=== PATIENT | female | born 1930 | race Caucasian/White ===

== ENCOUNTER 2016-10-04 13:26 | Emergency (ER) | payer MEDICARE, BC ==
[~2016-10-04 13:26] MED LIST: ASPI81TA5 PO; BUME1TAB PO; CART120C PO; DIGO0.12 PO; HUMALOG SQ; LEVEMIR SQ; LEVO88TA2 PO; LOSA25TA PO; METF1000 PO; METO100T PO; METO2.5T PO; POTA-245 PO; PRAM0.25 PO; PRED1SUS6 EACH EYE; SPIR25TA PO; TRAM50TA PO
[2016-10-04 13:35] VITALS: BP 134/65; PULSE 79; RESP 20; TEMP 98; O2SAT 98
[2016-10-04] MEDS ORDERED: oxyCODONE/ACETAMINOPHEN 5 MG/325 MG TAB PO ONE (14:15)
[2016-10-04] MEDS ORDERED: KETOROLAC TROMETHAMINE 60 MG/2 ML (IM) VIAL IM ONE (14:15)
[2016-10-04] MEDS ORDERED: HYDR-3533 PO (14:23)
--- NOTE | 2016-10-04 14:23 | PD ---
HPI Chief Complaint: Pain: Acute or Chronic Time Seen by Provider: 14:00 Travel History International Travel<30 days: No Contact w/Intl Traveler<30days: No Traveled to known affect area: No History of Present Illness HPI 85-year-old female presents to the emergency room for evaluation of right lateral hip pain for the past several weeks but worsened last night. No trauma or injury. Pain is worsened with any range of motion of the right hip or walking. She has constant dull ache at rest and sharp severe pain with any range of motion. She is prescribed tramadol for chronic arthritic pain and states that only helps a small amount. She also has taken Tylenol without significant relief. She denies right lower extremity paresthesias. She denies fever, chills, nausea, and vomiting. PFSH Past Medical History Heart Rhythm Problems: Yes Congestive Heart Failure: Yes Diabetes: Yes Patient Takes Glucophage: Yes Diminished Hearing: No Hypertension: Yes Immunizations Current: Yes Thyroid Disease: Yes Influenza Vaccination: Yes ?: Not Past Surgical History Abdominal Surgery: Yes (COLON FOR CANCER) Cardiac Surgery: Yes (HEART VALVE) Gynecologic Surgery: Yes (LT MASTECTOMY) Other Surgery: Yes (LYMPHOMA AND SKIN CANCER) Social History Alcohol Use: No Tobacco Use: No Substance Use: No Allergies-Medications (Allergen,Severity, Reaction): Coded Allergies: Zosyn (Verified Allergy, Severe, RASH, 10/04/16) Sulfa (Verified Allergy, Intermediate, Anaphylaxis, 10/04/16) Biaxin (Verified Allergy, Mild, Rash, 10/04/16) Reported Meds & Prescriptions Reported Meds & Active Scripts Active Prednisolone Acetate Opth 1% Susp 1 Drop EACH EYE QID Reported Aspirin DR (Aspirin) 81 Mg Tabdr 81 Mg PO DAILY Pramipexole (Pramipexole Dihydrochloride) 0.25 Mg Tab 0.25 Mg PO TID Metoprolol Tartrate 100 Mg Tab 100 Mg PO DAILY Tramadol (Tramadol HCl) 50 Mg Tab 50 Mg PO Q6H PRN Spironolactone 25 Mg Tab 25 Mg PO DAILY Cartia Xt (Diltiazem ER 24 HR) 120 Mg Caper 120 Mg PO DAILY Metformin (Metformin HCl) 1,000 Mg Tab 1,000 Mg PO BIDPC With meals Losartan (Losartan Potassium) 25 Mg Tab 12.5 Mg PO DAILY Metolazone 2.5 Mg Tab 2.5 Mg PO 2 TIMES A WEEK Digoxin 0.125 Mg Tab 0.125 Mg PO DAILY Bumetanide 1 Mg Tab 1 Mg PO DAILY Levothyroxine (Levothyroxine Sodium) 88 Mcg Tab 88 Mcg PO DAILY Klor-Con M20 (Potassium Chloride Microencaps) 20 Meq Tab 20 Meq PO DAILY Humalog Inj (Insulin Human Lispro) 1,000 Unit/10 Ml Vial 20 Units SQ TIDAC Levemir Inj (Insulin Detemir) 1,000 unit/ 10 ML Vial 45 Units SQ BID Do not mix with any other Insulin. Review of Systems Except as stated in HPI: all other systems reviewed are Neg Physical Exam Narrative GENERAL: Well-nourished, well-developed female in no acute distress. Afebrile. Presents in personal wheelchair. SKIN: Focused skin assessment warm/dry. No erythema or ecchymosis. HEAD: Normocephalic. EYES: No scleral icterus. No injection or drainage. NECK: Supple, trachea midline. No JVD or lymphadenopathy. CARDIOVASCULAR: Regular rate and rhythm without murmurs, gallops, or rubs. RESPIRATORY: Breath sounds equal bilaterally. No accessory muscle use. MUSCULOSKELETAL: No cyanosis. Chronic, 2+ pitting lymphedema in bilateral upper extremities. Pain with active range of motion of the right hip. Less pain with passive range of motion. 2+ dorsalis pedis pulse. No tenderness to palpation of the lateral hip. BACK: Nontender without obvious deformity. No CVA tenderness. Data Data Last Documented VS Vital Signs Date Time Temp Pulse Resp B/P Pulse Ox O2 Delivery O2 Flow Rate FiO2 10/04/16 13:35 98.0 79 20 134/65 98 Room Air Orders Ketorolac Inj (Toradol Inj) (10/04/16 14:15) Oxycodone-Acetamin 5-325 Mg (Percocet (10/04/16 14:15) MDM Medical Decision Making Medical Screen Exam Complete: Yes Emergency Medical Condition: Yes Medical Record Reviewed: Yes Differential Diagnosis Muscle spasm, strain, bursitis, fracture, arthritis Narrative Course 85-year-old female presents to the emergency room for evaluation of nontraumatic right hip pain for the past several weeks but worsened last night. Afebrile and well-appearing in the emergency room. Resting comfortably in bed. Presents in her personal wheelchair. Pain is worsened with any range of motion and ambulation. Physical exam reveals no erythema, ecchymosis, or increased warmth to the right lateral hip. Minimal pain with passive range of motion. There is no tenderness to palpation of the right lateral hip. No indication for imaging at this time. History and physical exam are most consistent with trochanteric bursitis. Patient was informed he would benefit from steroid intra-articular injections on an outpatient basis. She was given low-dose Toradol and Percocet all in the emergency room and will be discharged with very short course of Lortab. Told to follow-up with her primary care physician or return for worsening symptoms. She understands and agrees to plan. Diagnosis Primary Impression: Trochanteric bursitis, right hip Referrals: Primary Care Physician Patient Instructions: General Instructions, Hip Bursitis (ED) Additional Instructions: Rest and drink plenty of fluids. Take Lortab INSTEAD of tramadol as directed, as needed for pain. Do not drink alcohol or drive while taking this medication. Apply ice to the affected area for 20 minutes at a time, as needed for pain and swelling. Follow-up with a primary care physician. Return to the emergency room for worsening symptoms. Med/Other Pt SpecificInfo: Prescription(s) given Scripts Hydrocodone-Acetaminophen (Lortab)5-325 Mg Tab1 Tab PO Q6H PRN (PAIN) #8 TAB Ref 0 Prov:Braxton Ramirez MD 10/04/16 Disposition: 01 DISCHARGE HOME Condition: Stable Anyi Renae Oct 04, 2016 14:23
== END 2016-10-04 15:12 | disposition home or self-care (01) ==
LOC: PHEFT 13:26
DX: M70.61 Trochanteric bursitis, right hip (principal); E11.9 Type 2 diabetes mellitus without complications; I11.0 Hypertensive heart disease with heart failure; E07.9 Disorder of thyroid, unspecified
CPT/HCPCS: 96372; 99284; J1885

== ENCOUNTER 2016-11-12 11:49 | Emergency (ER) | payer MEDICARE, BC ==
[~2016-11-12] VITALS: Ht 167.6 cm; Wt 102.0 kg
[~2016-11-12 11:49] MED LIST changes: +HYDR-3533 PO
[2016-11-12 11:53] VITALS: BP 132/65; PULSE 85; RESP 16; TEMP 98.5; O2SAT 97
[2016-11-12] MEDS ORDERED: SODIUM CHLORIDE 0.9% FLUSH 5 ML FLUSH IV FLUSH PRN (12:45)
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
--- NOTE | 2016-11-12 13:12 | RADRPT ---
EXAM DATE/TIME: 11/12/2016 12:53 [facility] COMPARISON: CHEST PA & LAT, April 16, 2014, 14:11. INDICATIONS : Syncope with fall MEDICAL HISTORY : None. SURGICAL HISTORY : CABG. ENCOUNTER: Initial ACUITY: 1 week PAIN SCORE: 0/10 LOCATION: Bilateral chest FINDINGS: A single view of the chest demonstrates the lungs to be symmetrically aerated without evidence of mas s, infiltrate or effusion. The heart size is enlarged. The patient is status post sternotomy. There is an anterior dislocation of the humeral head at the right glenohumeral joint.. CONCLUSION: 1. Anterior dislocation of the right humeral head. 2. Cardiomegaly. The patient is status post sternotomy. Deven Vides MD on November 12, 2016 at 13:09 Board Certified Radiologist. This report was verified electronically.
[2016-11-12 13:35] LABS: AUTOMATED NEUTROPHIL # 7.1 TH/MM3 (1.8-7.7); BASOPHIL # 0.2 TH/MM3 (0-0.2); EOSINOPHIL # 0.1 TH/MM3 (0-0.4); EOSINOPHIL % 0.9 % (0.0-4.0); HEMATOCRIT 37.7 % (35.0-46.0); LYMPH % 13.3 % (9.0-44.0); LYMPHOCYTE # 1.3 TH/MM3 (1.0-4.8); MEAN CELL VOLUME 76.6 FL (80.0-100.0); MEAN CORPUSCULAR HEMOGLOBIN 23.8 PG (27.0-34.0); NEUT % 75.8 % (16.0-70.0); PLATELET COUNT 221 TH/MM3 (150-450); RED BLOOD COUNT 4.92 MIL/MM3 (4.00-5.30); RED CELL DISTRIBUTION WIDTH 16.5 % (11.6-17.2); WHITE BLOOD COUNT 9.5 TH/MM3 (4.0-11.0)
[2016-11-12 13:39] LABS: HEMO FLAGS AUTO DIFF
[2016-11-12 13:46] LABS: CHLORIDE 104 MEQ/L (98-107); SODIUM (NA) 138 MEQ/L (136-145)
[2016-11-12 13:50] LABS: BLOOD, URINE SMALL (NEG); GLUCOSE,URINE 100 mg/dL (NEG); KETONE, URINE NEG (NEG); NITRITE,URINE NEG (NEG)
[2016-11-12 13:51] LABS: ANION GAP 8 MEQ/L (5-15); BICARBONATE 26.4 MEQ/L (21.0-32.0); BLOOD UREA NITROGEN 15 MG/DL (7-18)
[2016-11-12 13:52] LABS: PROTHROMBIN TIME - PATIENT 10.9 SEC (9.8-11.6)
[2016-11-12 13:53] LABS: ALCOHOL LESS THAN 3 MG/DL (0-5); ALT (GPT) 14 U/L (10-53)
[2016-11-12 13:54] LABS: AST (GOT) 16 U/L (15-37); GLOMERULAR FILTRATION RATE 69 ML/MIN (>89)
[2016-11-12 13:55] LABS: TOTAL BILIRUBIN ADULT 1.1 MG/DL (0.2-1.0)
[2016-11-12 13:56] LABS: ALKALINE PHOSPHATASE 88 U/L (45-117)
[2016-11-12 14:00] LABS: CREATINE KINASE 56 U/L (26-192)
[2016-11-12 14:02] LABS: METHOD OF COLLECTION CATH; URINE COLOR YELLOW (YELLW/STRAW)
[2016-11-12 14:03] LABS: BACTERIA, URINE MOD /hpf; COMMENT (UR) CULTURE INDICATED; CULTURE IF INDICATED CULTURE INDICATED; RBC, URINE 0-3 /hpf (0-3); SQUAMOUS EPITHELIAL CELL URINE 0-5 /hpf (0-5)
[2016-11-12] MEDS ORDERED: CIPROFLOXACIN 400 MG PREMIX 200 ML IV ONE (14:15)
--- NOTE | 2016-11-12 14:24 | RADRPT ---
EXAM DATE/TIME: 11/12/2016 14:00 [facility] COMPARISON: No previous studies available for comparison. INDICATIONS : Trauma, fall. RADIATION DOSE: 62.28 CTDIvol (mGy) MEDICAL HISTORY : Cardiovascular disease. Carcinoma, breast. Lymphoma.Squamous cell, melanoma, ca colon. SURGICAL HISTORY : Mastectomy, left. Heart valve ENCOUNTER: Initial ACUITY: 1 day PAIN SCALE: 8/10 LOCATION: cranial TECHNIQUE: Multiple contiguous axial images were obtained of the head. Using automated exposure control and adj ustment of the mA and/or kV according to patient size, radiation dose was kept as low as reasonably a chievable to obtain optimal diagnostic quality images. DICOM format image data is available electro nically for review and comparison. FINDINGS: CEREBRUM: Moderate cerebral atrophy. The ventricles are normal for degree of atrophy. No evidence of midline s hift, mass lesion, hemorrhage or acute infarction. No extra-axial fluid collections are seen. POSTERIOR FOSSA: The cerebellum and brainstem are intact. The 4th ventricle is midline. The cerebellopontine angle i s unremarkable. EXTRACRANIAL: The visualized portion of the orbits is intact. SKULL: The calvaria is intact. No evidence of skull fracture. CONCLUSION: 1. Senescent changes. 2. No acute intracranial abnormality. David Alonzo MD on November 12, 2016 at 14:21 Board Certified Radiologist. This report was verified electronically.
[2016-11-12 14:26] LABS: SCAN/DIFF AUTO DIFF CONFIRMED
--- NOTE | 2016-11-12 14:31 | RADRPT ---
EXAM DATE/TIME: 11/12/2016 14:03 [facility] COMPARISON: No previous studies available for comparison. INDICATIONS : Trauma, fall, buttox pain. ORAL CONTRAST: No oral contrast ingested. RADIATION DOSE: 30.85 CTDIvol (mGy) MEDICAL HISTORY : Carcinoma, breast. Lymphoma. Cardiovascular diseaseMelona, squamous cell. MS, A fib SURGICAL HISTORY : Mastectomy, left. Aoric valve ENCOUNTER: Initial ACUITY: 1 day PAIN SCALE: 7/10 LOCATION: [place]. TECHNIQUE: Volumetric scanning of the pelvis was performed. Using automated exposure control and adjustment of the mA and/or kV according to patient size, radiation dose was kept as low as reasonab ly achievable to obtain optimal diagnostic quality images. DICOM format image data is available alecia ctronically for review and comparison. FINDINGS: BOWEL/MESENTERY: Surgical suture line visualized portions of the proximal colon. Bowel appears gr ossly unremarkable without evidence for obstruction or pneumatosis. No significant free air or free f luid. No minimal focal fluid collection. BLADDER: There is no wall thickening or mass. 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 REPRODUCTIVE: Within normal limits. INGUINAL: There is no lymphadenopathy or hernia. MUSCULOSKELETAL: Extensive degenerative changes in the lower lumbar spine with postoperative stoll ges of prior laminectomy at L5. Bilateral degenerative changes of the SI joints. There is cortical st ep-off and subtle lucency involving the first coccyx. Sacrum appears grossly intact. CONCLUSION: 1. Nondisplaced fracture of the first coccyx. 2. Otherwise, no acute pelvic abnormality. David Alonzo MD on November 12, 2016 at 14:22 Board Certified Radiologist. This report was verified electronically.
[2016-11-12 14:40] LABS: DIGOXIN 0.6 NG/ML (0.8-2.0)
[2016-11-12 15:14] VITALS: RESP 16; O2SAT 98
[2016-11-12 15:16] VITALS: BP 133/65; PULSE 85; RESP 16; O2SAT 98
[2016-11-12] MEDS ORDERED: NORC5TAB PO (15:28)
[2016-11-12] MEDS ORDERED: CIPR-9 PO (15:28)
--- NOTE | 2016-11-13 12:59 | EKG ---
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
== END 2016-11-12 16:36 | disposition home or self-care (01) ==
LOC: PHED 11:49
DX: N30.00 Acute cystitis without hematuria (principal); M24.411 Recurrent dislocation, right shoulder; S32.2XXA Fracture of coccyx, initial encounter for closed fracture; R44.0 Auditory hallucinations; R60.0 Localized edema; R00.2 Palpitations; R94.31 Abnormal electrocardiogram [ECG] [EKG]; B96.1 Klebsiella pneumoniae [K. pneumoniae] as the cause of diseases classified elsewhere; B96.89 Other specified bacterial agents as the cause of diseases classified elsewhere; W19.XXXA Unspecified fall, initial encounter; E11.9 Type 2 diabetes mellitus without complications; I10 Essential (primary) hypertension; E07.9 Disorder of thyroid, unspecified; Z91.81 History of falling; Z79.4 Long term (current) use of insulin; Z86.79 Personal history of other diseases of the circulatory system
CPT/HCPCS: 70450; 71010; 72192; 80053; 80162; 80307; 81001; 82140; 82550; 83880; 84443; 84484; 85025; 85610; 85730; 87077; 87086; 87186; 93005; 96374; 99285; J0744

== ENCOUNTER 2017-03-15 16:38 | Inpatient (IN) | payer MEDICARE, BC ==
[~2017-03-15] VITALS: Ht 167.6 cm; Wt 91.6 kg
[~2017-03-15 16:38] MED LIST changes: -ASPI81TA5 PO; +ECASA81 PO; -HYDR-3533 PO; +KLOR20TA3 PO; -POTA-245 PO; -PRED1SUS6 EACH EYE; +SYSTSOL EACH EYE; +TORS20TA PO
[2017-03-15 16:45] VITALS: BP 144/75; PULSE 86; RESP 16; TEMP 98; O2SAT 99
[2017-03-15] MEDS ORDERED: SODIUM CHLORIDE 0.9% FLUSH 10 ML FLUSH IVF PRN (17:45)
--- NOTE | 2017-03-15 18:30 | PD ---
HPI Chief Complaint: Fall Time Seen by Provider: 17:30 Travel History International Travel<30 days: No Contact w/Intl Traveler<30days: No Traveled to known affect area: No History of Present Illness HPI This is an 86-year-old female who presents to the emergency department having had multiple falls in the past week. She reports she has been unsteady on her feet, constant for at least 1 week, moderate severity, feeling like she is going to fall backwards when she stands. She did hit her head the last time that she fell. The patient also reports right shoulder pain which she says she has had ever since a fall in October. She has been following up with Dr. Coffman intermittently and has had cortisone injections in that shoulder. The family has been told it has dislocated before. 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) Chemotherapy: Yes Congestive Heart Failure: Yes Diabetes: Yes Patient Takes Glucophage: Yes Diminished Hearing: No Hypertension: Yes Immunizations Current: Yes Thyroid Disease: Yes Tetanus Vaccination: Unknown Influenza Vaccination: Yes Past Surgical History Abdominal Surgery: Yes (COLON FOR CANCER) Cardiac Surgery: Yes (HEART VALVE) Cholecystectomy: Yes Gynecologic Surgery: Yes (LT MASTECTOMY) Other Surgery: Yes (LYMPHOMA AND SKIN CANCER) Social History Alcohol Use: No Tobacco Use: No (QUIT 24 YEARS AGO) Substance Use: No Allergies-Medications (Allergen,Severity, Reaction): Coded Allergies: piperacillin (Verified Allergy, Severe, RASH, 03/15/17) tazobactam (Verified Allergy, Severe, RASH, 03/15/17) Sulfa (Sulfonamide Antibiotics) (Verified Allergy, Intermediate, Anaphylaxis, 03/15/17) sulindac (Verified Allergy, Intermediate, Anaphylaxis, 03/15/17) clarithromycin (Verified Allergy, Mild, Rash, 03/15/17) Reported Meds & Prescriptions Reported Meds & Active Scripts Active Reported Systane Opth Drops (Polyethylene Glycol-Propylene Glycol Opth Drp) 0.4-0.3% Soln 1 Drop EACH EYE PRN PRN Torsemide 20 Mg Tab 20 Mg PO DAILY Aspirin DR (Aspirin) 81 Mg Tabdr 81 Mg PO DAILY Pramipexole (Pramipexole Dihydrochloride) 0.25 Mg Tab 0.75 Mg PO HS Metoprolol Tartrate 100 Mg Tab 100 Mg PO DAILY Tramadol (Tramadol HCl) 50 Mg Tab 50 Mg PO Q6H PRN Spironolactone 25 Mg Tab 25 Mg PO DAILY Cartia Xt (Diltiazem ER 24 HR) 120 Mg Caper 120 Mg PO DAILY Metformin (Metformin HCl) 1,000 Mg Tab 1,000 Mg PO BIDPC With meals Losartan (Losartan Potassium) 25 Mg Tab 12.5 Mg PO DAILY Metolazone 2.5 Mg Tab 2.5 Mg PO 2 TIMES A WEEK Digoxin 0.125 Mg Tab 0.125 Mg PO DAILY Levothyroxine (Levothyroxine Sodium) 88 Mcg Tab 88 Mcg PO DAILY Klor-Con M20 (Potassium Chloride Microencaps) 20 Meq Tab 20 Meq PO DAILY Humalog Inj (Insulin Human Lispro) 1,000 Unit/10 Ml Vial 15 Units SQ TIDAC Levemir Inj (Insulin Detemir) 1,000 unit/ 10 ML Vial 40 Units SQ BID Do not mix with any other Insulin. Review of Systems Except as stated in HPI: all other systems reviewed are Neg Physical Exam Narrative GENERAL:Well appearing, no acute distress SKIN: Focused skin assessment warm and dry. HEAD: Atraumatic. Normocephalic. EYES: Pupils equal and round. No injection or drainage. ENT: Moist mucous membranes NECK: Trachea midline. CARDIOVASCULAR: Regular rate and rhythm. No murmur appreciated. 2+ bilateral pitting edema of the lower extremities. 2+ right radial pulse with normal capillary refill. RESPIRATORY: Clear to auscultation. Breath sounds equal bilaterally. GASTROINTESTINAL: Abdomen soft, non-tender, nondistended. MUSCULOSKELETAL: Gross depression of the right glenohumeral joint, with minimal pain with range of motion of the right shoulder, able to touch her opposite shoulder with her right hand without assistance or difficulty. NEUROLOGICAL: Awake and alert. No obvious cranial nerve deficits. Gross ataxia of the left upper extremity. 4+/5 strength in the bilateral lower extremities. Sensation and motor grossly intact in the median, ulnar and radial distribution of the right hand. PSYCHIATRIC: Appropriate mood and affect; insight and judgment normal. Data Data Last Documented VS Vital Signs Date Time Temp Pulse Resp B/P (MAP) Pulse Ox O2 Delivery O2 Flow Rate FiO2 03/15/17 16:45 98.0 86 16 144/75 (98) 99 Orders Orders Electrocardiogram (03/15/17 17:43) Prothrombin Time / Inr (Pt) (03/15/17 17:43) Act Partial Throm Time (Ptt) (03/15/17 17:43) Complete Blood Count With Diff (03/15/17 17:43) Comprehensive Metabolic Panel (03/15/17 17:43) Troponin I (03/15/17 17:43) Urinalysis - C+S If Indicated (03/15/17 17:43) Ct Brain W/O Iv Contrast(Rout) (03/15/17 17:43) Ecg Monitoring (03/15/17 17:43) Iv Access Insert/Monitor (03/15/17 17:43) Oximetry (03/15/17 17:43) Cath For Specimen (03/15/17 17:43) Sodium Chloride 0.9% Flush (Ns Flush) (03/15/17 17:45) Humerus (Min 2vws) (03/15/17 ) Ct Cerv Spine W/O Contrast (03/15/17 ) Shoulder, Limited(2vws) (03/15/17 ) Digoxin (03/15/17 17:43) Labs Laboratory Tests Test 03/15/17 18:50 Urine Color YELLOW Urine Turbidity CLEAR Urine pH 6.0 Urine Specific [place] 1.022 Urine Protein NEG mg/dL Urine Glucose (UA) 250 mg/dL Urine Ketones NEG mg/dL Urine Occult Blood NEG Urine Nitrite NEG Urine Bilirubin NEG Urine Leukocyte Esterase NEG Urine RBC 0-3 /hpf Urine WBC 3-5 /hpf Urine Squamous Epithelial Cells 0-5 /hpf Urine Renal Epithelial Cells 0-5 /hpf Urine Mucus FEW /lpf Microscopic Urinalysis Comment CATH-CULT NOT IND MDM Medical Decision Making Medical Screen Exam Complete: Yes Emergency Medical Condition: Yes Interpretation(s) afebrile, mild hypertension, no tachycardia Last [address] 03/15/17 4443 Signed Impressions: Service Date/Time: Wednesday, March 15, 2017 18:08 - CONCLUSION: 1. 13 mm focus of increased density involving the right cerebral peduncle with characteristics more suggestive of a mass. I cannot completely exclude an intraparenchymal hemorrhage although this is an atypical location for this. MRI with and without gadolinium could be considered to further evaluate. 2. Atrophy. Lei Fontaine Jr., MD Shoulder X-Ray 03/15/17 0000 Signed Impressions: Service Date/Time: Wednesday, March 15, 2017 17:58 - CONCLUSION: Anterior dislocation. Lei Fontaine Jr., MD Humerus X-Ray 03/15/17 0000 Signed Impressions: Service Date/Time: Wednesday, March 15, 2017 17:58 - CONCLUSION: Anterior dislocation of the shoulder. Lei Fontaine Jr., MD Cervical Spine CT 03/15/17 0000 Signed Impressions: Service Date/Time: Wednesday, March 15, 2017 18:08 - CONCLUSION: 1. No fracture or dislocation. 2. Multilevel degenerative changes including areas of central canal stenosis and neural foraminal impingement as detailed at each level in the above discussion. Lei Fontaine Jr., MD Differential Diagnosis Stroke, intracranial hemorrhage, tumor, subdural hematoma, electrolyte abnormality, urinary tract infection Narrative Course This is an 86-year-old female who presents to the emergency department with chief complaint of fall and closed head injury. She has fallen multiple times over the past week. She is placed on a monitor and an IV was established. She was found to be grossly ataxic in the left upper extremity concerning for stroke. CT of the head demonstrates a small focus of increased density in the right cerebral peduncle potentially a mass. Patient requires admission for MRI. Patient also has x-ray findings consistent with an anterior shoulder dislocation. Patient has very minimal pain on exam, good range of motion, is able to touch her left shoulder with her right hand without assistance or difficulty and has a normal neurovascular exam. 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 The family cannot really identify when her shoulder pain started and they say it may have been from a fall in October. I had be very hesitant to reduce this in the emergency department given the concern for adhesions and the risk of axillary artery injury. Her symptoms aren't consistent with an acute dislocation. I discussed this with Dr. Lucio and he agreed that she was appropriate for routine consultation by her orthopedic surgeon. Patient will be placed in a sling and swath and admitted for further management. Naomie Livingston MD Mar 15, 2017 18:30
--- NOTE | 2017-03-15 18:31 | RADRPT ---
EXAM DATE/TIME: 03/15/2017 18:08 [facility] COMPARISON: CT BRAIN W/O CONTRAST, November 12, 2016, 14:00. INDICATIONS : Trauma, fall. RADIATION DOSE: 65.86 CTDIvol (mGy) MEDICAL HISTORY : Diabetes mellitus type 2. Hypertension. Carcinoma, colon. SURGICAL HISTORY : None. ENCOUNTER: Initial ACUITY: 1 day PAIN SCALE: 5/10 LOCATION: neck TECHNIQUE: Multiple contiguous axial images were obtained of the head. Using automated exposure control and adj ustment of the mA and/or kV according to patient size, radiation dose was kept as low as reasonably a chievable to obtain optimal diagnostic quality images. DICOM format image data is available electro nically for review and comparison. FINDINGS: There is a 1.3 x 0.9 cm oval-shaped area of high attenuation involving the right cerebral peduncle. T his is a new finding from prior exam. Supratentorial and infratentorial atrophy noted. Ventricles are normal in size. The calvarium is intact. Paranasal sinuses are normal. Mastoid air cells are atrophi c bilaterally. CONCLUSION: 1. 13 mm focus of increased density involving the right cerebral peduncle with characteristics more s uggestive of a mass. I cannot completely exclude an intraparenchymal hemorrhage although this is an a typical location for this. MRI with and without gadolinium could be considered to further evaluate. 2. Atrophy. Lei Fontaine Jr., MD on March 15, 2017 at 18:25 Board Certified Radiologist. This report was verified electronically.
--- NOTE | 2017-03-15 18:32 | RADRPT ---
EXAM DATE/TIME: 03/15/2017 17:58 [facility] COMPARISON: No previous studies available for comparison. INDICATIONS : Right arm pain after fall. MEDICAL HISTORY : None. SURGICAL HISTORY : None. ENCOUNTER: Initial ACUITY: 1 day PAIN SCORE: 8/10 LOCATION: Right arm. FINDINGS: 2 views of the humerus reveal anterior dislocation at the glenohumeral joint. No discrete fracture. O steopenia noted. CONCLUSION: Anterior dislocation of the shoulder. Lei Fontaine Jr., MD on March 15, 2017 at 18:28 Board Certified Radiologist. This report was verified electronically.
--- NOTE | 2017-03-15 18:33 | RADRPT ---
EXAM DATE/TIME: 03/15/2017 17:58 [facility] COMPARISON: No previous studies available for comparison. INDICATIONS : Right shoulder pain after fall. MEDICAL HISTORY : Carcinoma, breast. Lymphoma. Cardiovascular disease. [place], squamous cell. [place], Afib. SURGICAL HISTORY : Mastectomy, left. Aoric valve. ENCOUNTER: Initial ACUITY: 1 day PAIN SCORE: 10/10 LOCATION: Right shoulder. FINDINGS: 2 views of the right shoulder reveal an anterior dislocation at the glenohumeral joint. No fracture o bserved. Osteopenia noted. Soft tissues are unremarkable. CONCLUSION: Anterior dislocation. Lei Fontaine Jr., MD on March 15, 2017 at 18:29 Board Certified Radiologist. This report was verified electronically.
--- NOTE | 2017-03-15 18:41 | RADRPT ---
EXAM DATE/TIME: 03/15/2017 18:08 [facility] COMPARISON: No previous studies available for comparison. INDICATIONS : Trauma, fall. RADIATION DOSE: 26.85 CTDIvol (mGy) MEDICAL HISTORY : Diabetes mellitus type 2. Hypertension. Carcinoma, colon. SURGICAL HISTORY : None. ENCOUNTER: Initial ACUITY: 1 day PAIN SCALE: 5/10 LOCATION: neck TECHNIQUE: Volumetric scanning of the cervical spine was performed. Multiplanar reconstructions in the sagittal, coronal and oblique axial planes were performed. Using automated exposure control and adjustment o f the mA and/or kV according to patient size, radiation dose was kept as low as reasonably achievable to obtain optimal diagnostic quality images. DICOM format image data is available electronically f or review and comparison. FINDINGS: VERTEBRAE: Normal vertebral body height. ALIGNMENT: There is a mild retrolisthesis of C4 on C5. Alignment is otherwise preserved. Scattered calcifications throughout the carotid arteries. Thyroid gland is heterogeneous. The right l obe is either atrophic or surgically absent. C2-C3: There is a broad-based disc bulge. This abuts the ventral portion of the cord. Neural foramina are pa tent bilaterally. C3-C4: Significant broad-based disc bulge which flattens the ventral portion of the cord. Narrowing of the l ateral recesses bilaterally. Bony uncovertebral hypertrophy there is mild neural foraminal narrowing bilaterally. C4-C5: Significant disc space narrowing with a broad-based disc osteophyte complex eccentric to the left fla ttens the ventral portion of the cord more pronounced in the left of midline. This totally obscures b oth lateral recesses. Bony uncovertebral hypertrophy generates significant bilateral neural foraminal narrowing. C5-C6: A broad-based disc bulge eccentric to the right narrows the right lateral recess and flattens the rig ht ventral portion of the cord. Bony uncovertebral hypertrophy without significant neural foraminal n arrowing. C6-C7: The bony spinal canal is normal in size. No evidence of disc bulge or herniation. The neural forami na are bilaterally patent. C7-T1: The bony spinal canal is normal in size. No evidence of disc bulge or herniation. The neural forami na are bilaterally patent. CONCLUSION: 1. No fracture or dislocation. 2. Multilevel degenerative changes including areas of central canal stenosis and neural foraminal imp ingement as detailed at each level in the above discussion. Lei Fontaine Jr., MD on March 15, 2017 at 18:33 Board Certified Radiologist. This report was verified electronically.
[2017-03-15 19:04] LABS: BILIRUBIN, URINE NEG (NEG); BLOOD, URINE NEG (NEG); GLUCOSE,URINE 250 mg/dL (NEG); KETONE, URINE NEG (NEG); NITRITE,URINE NEG (NEG); URINE LEUKOCYTE ESTERASE NEG (NEG)
[2017-03-15 19:09] LABS: URINE COLOR YELLOW (YELLW/STRAW)
[2017-03-15 19:11] LABS: MUCUS URINE FEW /lpf (OCC); RBC, URINE 0-3 /hpf (0-3); RENAL EPITHELIAL CELLS 0-5 /hpf; SQUAMOUS EPITHELIAL CELL URINE 0-5 /hpf (0-5)
[2017-03-15 19:41] VITALS: BP 157/68
[2017-03-15 19:42] VITALS: O2SAT 95
[2017-03-15 19:49] LABS: BASOPHIL # 0.6 TH/MM3 (0-0.2); BASOPHIL % 4.9 % (0.0-2.0); EOSINOPHIL # 0.1 TH/MM3 (0-0.4); EOSINOPHIL % 0.4 % (0.0-4.0); LYMPH % 11.8 % (9.0-44.0); LYMPHOCYTE # 1.5 TH/MM3 (1.0-4.8); MEAN CELL VOLUME 79.8 FL (80.0-100.0); MEAN CORPUSCULAR HEMOGLOBIN 25.3 PG (27.0-34.0); MEAN CORPUSCULAR HGB CONC 31.7 % (32.0-36.0); MEAN PLATELET VOLUME 8.6 FL (7.0-11.0); MONO % 6.3 % (0.0-8.0); MONOCYTE # 0.8 TH/MM3 (0-0.9); NEUT % 76.6 % (16.0-70.0); PLATELET COUNT 187 TH/MM3 (150-450); RED BLOOD COUNT 5.14 MIL/MM3 (4.00-5.30)
[2017-03-15 19:57] LABS: CHLORIDE 104 MEQ/L (98-107); SODIUM (NA) 139 MEQ/L (136-145)
[2017-03-15 20:00] LABS: BICARBONATE 27.6 MEQ/L (21.0-32.0); CALCIUM 8.6 MG/DL (8.5-10.1); GLUCOSE,RANDOM 137 MG/DL (74-106)
[2017-03-15 20:01] LABS: BLOOD UREA NITROGEN 21 MG/DL (7-18)
[2017-03-15 20:03] LABS: ALT (GPT) 17 U/L (10-53); AST (GOT) 10 U/L (15-37)
[2017-03-15 20:04] LABS: CREATININE 0.76 MG/DL (0.50-1.00); GLOMERULAR FILTRATION RATE 72 ML/MIN (>89)
--- NOTE | 2017-03-15 20:04 | PD ---
HPI Chief Complaint: Fall Time Seen by Provider: 20:02 Travel History International Travel<30 days: No Contact w/Intl Traveler<30days: No Traveled to known affect area: No History of Present Illness HPI Dr. Livingston left this patient with me to admit and, apparently she has already consulted orthopedics. 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) Chemotherapy: Yes Congestive Heart Failure: Yes Diabetes: Yes Patient Takes Glucophage: Yes Diminished Hearing: No Hypertension: Yes Immunizations Current: Yes Thyroid Disease: Yes Tetanus Vaccination: Unknown Influenza Vaccination: Yes Past Surgical History Abdominal Surgery: Yes (COLON FOR CANCER) Cardiac Surgery: Yes (HEART VALVE) Cholecystectomy: Yes Gynecologic Surgery: Yes (LT MASTECTOMY) Other Surgery: Yes (LYMPHOMA AND SKIN CANCER) Social History Alcohol Use: No Tobacco Use: No (QUIT 24 YEARS AGO) Substance Use: No Allergies-Medications (Allergen,Severity, Reaction): Coded Allergies: piperacillin (Verified Allergy, Severe, RASH, 03/15/17) tazobactam (Verified Allergy, Severe, RASH, 03/15/17) Sulfa (Sulfonamide Antibiotics) (Verified Allergy, Intermediate, Anaphylaxis, 03/15/17) sulindac (Verified Allergy, Intermediate, Anaphylaxis, 03/15/17) clarithromycin (Verified Allergy, Mild, Rash, 03/15/17) Reported Meds & Prescriptions Reported Meds & Active Scripts Active Reported Systane Opth Drops (Polyethylene Glycol-Propylene Glycol Opth Drp) 0.4-0.3% Soln 1 Drop EACH EYE PRN PRN Torsemide 20 Mg Tab 20 Mg PO DAILY Aspirin DR (Aspirin) 81 Mg Tabdr 81 Mg PO DAILY Pramipexole (Pramipexole Dihydrochloride) 0.25 Mg Tab 0.75 Mg PO HS Metoprolol Tartrate 100 Mg Tab 100 Mg PO DAILY Tramadol (Tramadol HCl) 50 Mg Tab 50 Mg PO Q6H PRN Spironolactone 25 Mg Tab 25 Mg PO DAILY Cartia Xt (Diltiazem ER 24 HR) 120 Mg Caper 120 Mg PO DAILY Metformin (Metformin HCl) 1,000 Mg Tab 1,000 Mg PO BIDPC With meals Losartan (Losartan Potassium) 25 Mg Tab 12.5 Mg PO DAILY Metolazone 2.5 Mg Tab 2.5 Mg PO 2 TIMES A WEEK Digoxin 0.125 Mg Tab 0.125 Mg PO DAILY Levothyroxine (Levothyroxine Sodium) 88 Mcg Tab 88 Mcg PO DAILY Klor-Con M20 (Potassium Chloride Microencaps) 20 Meq Tab 20 Meq PO DAILY Humalog Inj (Insulin Human Lispro) 1,000 Unit/10 Ml Vial 15 Units SQ TIDAC Levemir Inj (Insulin Detemir) 1,000 unit/ 10 ML Vial 40 Units SQ BID Do not mix with any other Insulin. Review of Systems Except as stated in HPI: all other systems reviewed are Neg Physical Exam Narrative GENERAL: The blood pressure is 157/68 and temperature is 97.0 axillary. The rest the vital signs are normal. SKIN: Focused skin assessment warm/dry. HEAD: Atraumatic. Normocephalic. EYES: Pupils equal and round. No scleral icterus. No injection or drainage. ENT: No nasal bleeding or discharge. Mucous membranes pink and moist. NECK: Trachea midline. No JVD. CARDIOVASCULAR: Regular rate and rhythm. No murmur appreciated. RESPIRATORY: No accessory muscle use. Clear to auscultation. Breath sounds equal bilaterally. GASTROINTESTINAL: Abdomen soft, non-tender, nondistended. Hepatic and splenic margins not palpable. MUSCULOSKELETAL: No obvious deformities. No clubbing. No cyanosis. No edema. The patient can move her right elbow fairly well and can touch her head and other arm using her right arm. She seems to have very little pain over the right elbow. NEUROLOGICAL: Awake and alert. No obvious cranial nerve deficits. Normal speech. The patient does have ataxia. PSYCHIATRIC: Appropriate mood and affect; insight and judgment normal. Data Data Last Documented VS Vital Signs Date Time Temp Pulse Resp B/P (MAP) Pulse Ox O2 Delivery O2 Flow Rate FiO2 03/15/17 19:42 95 Room Air 03/15/17 16:45 98.0 86 16 Orders Orders Electrocardiogram (03/15/17 17:43) Prothrombin Time / Inr (Pt) (03/15/17 17:43) Act Partial Throm Time (Ptt) (03/15/17 17:43) Complete Blood Count With Diff (03/15/17 17:43) Comprehensive Metabolic Panel (03/15/17 17:43) Troponin I (03/15/17 17:43) Urinalysis - C+S If Indicated (03/15/17 17:43) Ct Brain W/O Iv Contrast(Rout) (03/15/17 17:43) Ecg Monitoring (03/15/17 17:43) Iv Access Insert/Monitor (03/15/17 17:43) Oximetry (03/15/17 17:43) Cath For Specimen (03/15/17 17:43) Sodium Chloride 0.9% Flush (Ns Flush) (03/15/17 17:45) Humerus (Min 2vws) (03/15/17 ) Ct Cerv Spine W/O Contrast (03/15/17 ) Shoulder, Limited(2vws) (03/15/17 ) Digoxin (03/15/17 17:43) Splint Or Brace Apply/Monitor (03/15/17 19:34) Consult Orthopedic (03/15/17 ) Mri Brain W&W/O Contrast (03/15/17 ) Admit To Inpatient (03/15/17 ) Vital Signs (Adult) Q4H (03/15/17 20:14) Activity Oob With Assistance (03/15/17 20:14) Roofer / Telemetry .CONTINUOUS (03/15/17 20:14) Diet Heart Healthy (03/16/17 Breakfast) Sodium Chloride 0.9% Flush (Ns Flush) (03/15/17 20:15) Sodium Chloride 0.9% Flush (Ns Flush) (03/15/17 21:00) Basic Metabolic Panel (Bmp) (03/16/17 06:00) Complete Blood Count With Diff (03/16/17 06:00) Pt Request For Service (03/15/17 20:14) Case Management Consult (03/15/17 20:14) Naloxone Inj (Narcan Inj) (03/15/17 20:15) Inpatient Certification (03/15/17 ) Bedside Glucose Q4H (03/15/17 20:14) Blood Glucose Goal (Criteria) (03/15/17 20:14) Hypoglycemia 70 Mg/Dl Or < (03/15/17 20:14) Notify Dr: Other (03/15/17 20:14) Dextrose 50% In Ernst (Vial) Inj (D50w (Vi (03/15/17 20:15) Glucagon Inj (Glucagon Inj) (03/15/17 20:15) (Hub Use Only)Inp Phy Cons/Ref (03/15/17 ) Admit Order (Ed Use Only) (03/15/17 21:21) Labs Laboratory Tests Test 03/15/17 18:50 03/15/17 19:34 Urine Color YELLOW Urine Turbidity CLEAR Urine pH 6.0 Urine Specific [place] 1.022 Urine Protein NEG mg/dL Urine Glucose (UA) 250 mg/dL Urine Ketones NEG mg/dL Urine Occult Blood NEG Urine Nitrite NEG Urine Bilirubin NEG Urine Leukocyte Esterase NEG Urine RBC 0-3 /hpf Urine WBC 3-5 /hpf Urine Squamous Epithelial Cells 0-5 /hpf Urine Renal Epithelial Cells 0-5 /hpf Urine Mucus FEW /lpf Microscopic Urinalysis Comment CATH-CULT NOT IND White Blood Count 13.0 TH/MM3 Red Blood Count 5.14 MIL/MM3 Hemoglobin 13.0 GM/DL Hematocrit 41.0 % Mean Corpuscular Volume 79.8 FL Mean Corpuscular Hemoglobin 25.3 PG Mean Corpuscular Hemoglobin Concent 31.7 % Red Cell Distribution Width 17.0 % Platelet Count 187 TH/MM3 Mean Platelet Volume 8.6 FL Neutrophils (%) (Auto) 76.6 % Lymphocytes (%) (Auto) 11.8 % Monocytes (%) (Auto) 6.3 % Eosinophils (%) (Auto) 0.4 % Basophils (%) (Auto) 4.9 % Neutrophils # (Auto) 10.0 TH/MM3 Lymphocytes # (Auto) 1.5 TH/MM3 Monocytes # (Auto) 0.8 TH/MM3 Eosinophils # (Auto) 0.1 TH/MM3 Basophils # (Auto) 0.6 TH/MM3 CBC Comment DIFF FINAL Differential Comment Prothrombin Time 10.3 SEC Prothromb Time International Ratio 1.0 RATIO Activated Partial Thromboplast Time 17.8 SEC Blood Urea Nitrogen 21 MG/DL Creatinine 0.76 MG/DL Random Glucose 137 MG/DL Total Protein 6.4 GM/DL Albumin 3.0 GM/DL Calcium Level 8.6 MG/DL Alkaline Phosphatase 91 U/L Aspartate Amino Transf (AST/SGOT) 10 U/L Alanine Aminotransferase (ALT/SGPT) 17 U/L Total Bilirubin 0.9 MG/DL Sodium Level 139 MEQ/L Potassium Level 4.4 MEQ/L Chloride Level 104 MEQ/L Carbon Dioxide Level 27.6 MEQ/L Anion Gap 7 MEQ/L Estimat Glomerular Filtration Rate 72 ML/MIN Troponin I LESS THAN 0.02 NG/ML Digoxin Level 0.8 NG/ML MDM Medical Decision Making Medical Screen Exam Complete: Yes Emergency Medical Condition: Yes Medical Record Reviewed: Yes Interpretation(s) The CT brain shows a 13 mm focus of increased density in the right cerebral peduncle suggestive of a mass. The CBC shows a white count of 13,000 but is otherwise unremarkable. The urine shows 250 glucose but is otherwise normal and culture is not indicated. The complete metabolic profile shows a BUN of 21 , glucose 137 and albumen 3.0 but is otherwise normal. The troponin I is normal. The digoxin level is 0.8. The coagulation profile shows an APTT of 17.8 but is otherwise normal. The MRI of the brain shows a 13 x 13 x 10 mm mass involving the right cerebral peduncle consistent with a primary malignancy , possibly a low-grade astrocytoma. Differential Diagnosis Intracranial bleed, intracranial mass, ischemic CVA, electrolyte disorder, hypo- /hyperglycemia Narrative Course The patient has ataxia. He likely has a tiny intracranial mass. It has a low probability of bleed but we are doing a MRI to confirm whether this is a mass or bleed. The patient has been falling frequently and is not safe to go back to the environment to the left at this time. Physician Communication Physician Communication I discussed the patient with Dr. Talbot who requested that I call Dr. Reyez. I discussed the patient with Dr. Reyez.. He states that he would not operate on this patient. Diagnosis Primary Impression: Ataxia Additional Impressions: Brain mass Frequent falls Admitting Information Admitting Physician Requests: Admit Andre Haji MD Mar 15, 2017 20:04
[2017-03-15 20:05] LABS: TOTAL BILIRUBIN ADULT 0.9 MG/DL (0.2-1.0); TOTAL PROTEIN 6.4 GM/DL (6.4-8.2)
[2017-03-15 20:06] LABS: ALKALINE PHOSPHATASE 91 U/L (45-117)
[2017-03-15 20:08] LABS: TROPONIN I LESS THAN 0.02 NG/ML (0.02-0.05)
[2017-03-15] MEDS ORDERED: NALOXONE HCL 0.4 MG/ML AMP IV PUSH PRN (20:15)
[2017-03-15] MEDS ORDERED: DEXTROSE 50% IN WATER 50 ML VIAL(D50) IV PUSH PRN (20:15)
[2017-03-15] MEDS ORDERED: GLUCAGON 1 MG/ML VIAL OTHER PRN (20:15)
[2017-03-15] MEDS ORDERED: SODIUM CHLORIDE 0.9% FLUSH 10 ML FLUSH IV FLUSH PRN (20:15)
[2017-03-15 20:25] LABS: PROTHROMBIN TIME - PATIENT 10.3 SEC (9.8-11.6)
[2017-03-15 20:42] LABS: DIGOXIN 0.8 NG/ML (0.8-2.0)
[2017-03-15] MEDS ORDERED: GADODIAMIDE PF 287 MG/ML 5 ML VIAL (for RAD MRI) IVCONTRAST ONE (21:44)
[2017-03-15 22:12] VITALS: BP 128/64; PULSE 64; RESP 18; O2SAT 96
--- NOTE | 2017-03-15 22:17 | RADRPT ---
EXAM DATE/TIME: 03/15/2017 21:26 [facility] COMPARISON: CT BRAIN W/O CONTRAST, March 15, 2017, 18:08. INDICATIONS : Hemorrhage vs mass, abnormal ct scan. CONTRAST: 19 cc Omniscan (gadodiamide) IV MEDICAL HISTORY : Hypertension. Diabetes mellitus type 2. Lymphoma. SURGICAL HISTORY : CABG Cholecystectomy. Heart valve ENCOUNTER: Initial ACUITY: 1 day PAIN SCORE: 0/10 LOCATION: Bilateral cranial TECHNIQUE: Multiplanar, multisequence MRI of the brain was performed both prior to and following the administrat ion of paramagnetic contrast. FINDINGS: There is a 1.3 x 1.3 x 1.0 cm homogeneously enhancing mass involving the right cerebral peduncle. Thi s abuts the right inferolateral wall of the third ventricle. This correlates to the finding on the re cent CT scan. No significant edema or mass effect observed. Scattered foci of high T2 signal abnormal ity involving the periventricular white matter of both cerebral hemispheres. Mild atrophy. No hemorrh age or acute infarction. CONCLUSION: 1. 13 x 13 x 10 mm mass involving the right cerebral peduncle consistent with a primary malignancy. P ossibly low grade astrocytoma. 2. Atrophy and chronic small vessel ischemic change. 3. No hemorrhage or acute infarction. Lei Fontaine Jr., MD on March 15, 2017 at 22:10 Board Certified Radiologist. This report was verified electronically.
[2017-03-15 23:00] VITALS: BP 130/58; PULSE 77; RESP 20; TEMP 97; O2SAT 96
[2017-03-15] MEDS: SODIUM CHLORIDE 0.9% FLUSH 10 ML FLUSH IV FLUSH SCH (23:24)
[2017-03-16 04:00] VITALS: BP 129/60; PULSE 84; RESP 20; TEMP 97.9; O2SAT 94
[2017-03-16 06:16] LABS: AUTOMATED NEUTROPHIL # 7.9 TH/MM3 (1.8-7.7); BASOPHIL # 0.4 TH/MM3 (0-0.2); BASOPHIL % 3.5 % (0.0-2.0); EOSINOPHIL # 0.1 TH/MM3 (0-0.4); EOSINOPHIL % 0.5 % (0.0-4.0); HEMATOCRIT 34.9 % (35.0-46.0); HEMOGLOBIN 11.1 GM/DL (11.6-15.3); LYMPH % 13.1 % (9.0-44.0); LYMPHOCYTE # 1.4 TH/MM3 (1.0-4.8); MEAN CELL VOLUME 80.4 FL (80.0-100.0); MEAN CORPUSCULAR HEMOGLOBIN 25.5 PG (27.0-34.0); MEAN CORPUSCULAR HGB CONC 31.7 % (32.0-36.0); MONO % 6.4 % (0.0-8.0); MONOCYTE # 0.7 TH/MM3 (0-0.9); NEUT % 76.5 % (16.0-70.0); PLATELET COUNT 139 TH/MM3 (150-450); RED BLOOD COUNT 4.34 MIL/MM3 (4.00-5.30); RED CELL DISTRIBUTION WIDTH 17.4 % (11.6-17.2); WHITE BLOOD COUNT 10.5 TH/MM3 (4.0-11.0)
[2017-03-16 06:36] LABS: CALCIUM 8.2 MG/DL (8.5-10.1)
[2017-03-16 06:37] LABS: BICARBONATE 28.3 MEQ/L (21.0-32.0)
[2017-03-16 06:40] LABS: CREATININE 0.62 MG/DL (0.50-1.00)
[2017-03-16 08:00] VITALS: BP 138/76; PULSE 84; RESP 18; TEMP 96.2; O2SAT 96
[2017-03-16 08:03] VITALS: PULSE 83
[2017-03-16] MEDS: SODIUM CHLORIDE 0.9% FLUSH 10 ML FLUSH IV FLUSH SCH ×2 (09:00→20:19)
[2017-03-16 12:00] VITALS: BP 131/90; PULSE 95; RESP 12; TEMP 96.4; O2SAT 100
[2017-03-16] MEDS ORDERED: PILL SPLITTER OTHER PRN (12:45)
[2017-03-16] MEDS ORDERED: ARTIFICIAL TEARS OPTH SOLN 15 ML BTL EACH EYE PRN (13:00)
--- NOTE | 2017-03-16 15:09 | HHI.HP ---
[facility] Jose Enrique Kumar M.D. Admission Diagnosis ataxia, pontine mass Diagnoses: Chief Complaint: Falls and weakness Travel History International Travel<30 Days: No Contact w/Intl Traveler <30 Da: No Traveled to Known Affected Are: No History of Present Illness This patient is a 86-year-old female with a history of multiple malignancies including melanoma, colon cancer, squamous cell carcinoma of the skin, breast cancer and non-Hodgkin's lymphoma. The patient presents with multiple falls in the past and most recently over the last week. She feels weak and has fallen at least 3 times. She hit her head and was brought to the emergency room by her family. They did do a CT in the emergency room and she is noted to have an brain mass which is new for the patient. There is a 13 mm right cerebral peduncle mass as seen on both CAT scans and MRI. Patient reports melanoma in the shoulder and in the back in the past. She says her sister also had a brain tumor which they thought was lymphoma. The patient has no history of immunocompromise. There has been no recent travel other than from [place] where most of her medical care has been in the past. She has a right shoulder in a sling due to dislocation which was recently evaluated by her orthopedic doctor Dr. Coffman. 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 She does get injections of steroids for that shoulder infrequently. At this time the patient is calm. She has no pain complaint. She is at the bedside in the chair. Enrique has been placed due to incontinence and probable early wounds on the scan. She does not move a lot because she is afraid she will fall. She has also been complaining of diplopia for which she saw the eye doctor. Patient's been admitted for further evaluation of the new brain mass. Review of Systems Constitutional: COMPLAINS OF: Weight loss, DENIES: Diaphoretic episodes, Fatigue, Fever, Weight gain, Chills, Dizziness, Change in appetite, Night Sweats Endocrine: DENIES: Abnorml menstrual pattern, Heat/cold intolerance, Polydipsia , Polyuria, Polyphagia Eyes: DENIES: Blurred vision, Diplopia, Eye inflammation, Eye pain, Vision loss , Photosensitivity, Double Vision Ears, nose, mouth, throat: DENIES: Tinnitus, Hearing loss, Vertigo, Nasal discharge, Oral lesions, Throat pain, Hoarseness, Ear Pain, Running Nose, Epistaxis, Sinus Pain, Toothache, Odynophagia Respiratory: DENIES: Apneas, Cough, Snoring, Wheezing, Hemoptysis, Sputum production, Shortness of breath Cardiovascular: DENIES: Chest pain, Palpitations, Syncope, Dyspnea on Exertion , PND, Lower Extremity Edema, Orthopnea, Claudication Gastrointestinal: DENIES: Abdominal pain, Black stools, Bloody stools, Constipation, Diarrhea, Nausea, Vomiting, Difficulty Swallowing, Anorexia Genitourinary: COMPLAINS OF: Urgency, DENIES: Abnormal vaginal bleeding, Dysmenorrhea, Dyspareunia, Sexual dysfunction, Urinary frequency, Urinary incontinence, Hematuria, Dysuria, Nocturia, Vaginal discharge Musculoskeletal: COMPLAINS OF: Joint pain, Back pain Integumentary: DENIES: Abnormal pigmentation, Pruritus, Rash, Nail changes, Breast masses, Breast skin changes, Nipple discharge Hematologic/lymphatic: DENIES: Bruising, Lymphadenopathy Immunologic/allergic: DENIES: Eczema, Urticaria Neurologic: DENIES: Abnormal gait, Headache, Localized weakness, Paresthesias, Seizures, Speech Problems, Tremor, Poor Balance Psychiatric: DENIES: Anxiety, Confusion, Mood changes, Depression, Hallucinations, Agitation, Suicidal Ideation, Homicidal Ideation, Delusions Except as stated in HPI: all other systems reviewed are Neg Past Family Social History Past Medical History Melanoma in the right shoulder and left neck Colon cancer status post resection Multiple squamous cell carcinomas Breast cancer status post lumpectomy Non-Hodgkin's lymphoma Diabetes mellitus Hypertension Hypothyroidism Atrial fibrillation History of aortic tissue aortic valve replacement Mitral regurgitation Past Surgical History Aortic valve replacement, tissue, back surgery, partial thyroidectomy, colon resection, left mastectomy and lumpectomy Reported Medications Reviewed in the EMR Allergies: Coded Allergies: piperacillin (Verified Allergy, Severe, RASH, 03/15/17) tazobactam (Verified Allergy, Severe, RASH, 03/15/17) Sulfa (Sulfonamide Antibiotics) (Verified Allergy, Intermediate, Anaphylaxis, 03/15/17) sulindac (Verified Allergy, Intermediate, Anaphylaxis, 03/15/17) clarithromycin (Verified Allergy, Mild, Rash, 03/15/17) Active Ordered Medications Reviewed in the EMR Family History Mother had non-Hodgkin's lymphoma, father had lung cancer 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 Social History No current tobacco or alcohol dependency, although she does drink infrequently and has quit tobacco in the 90s after 40 years Lives with her daughter Physical Exam Vital Signs Vital Signs Date Time Temp Pulse Resp B/P (MAP) Pulse Ox O2 Delivery O2 Flow Rate FiO2 03/16/17 12:00 96.4 95 12 131/90 (104) 100 03/16/17 08:03 83 03/16/17 08:00 96.2 84 18 138/76 (96) 96 03/16/17 04:00 97.9 84 20 129/60 (83) 94 03/15/17 23:00 97.0 77 20 130/58 (82) 96 03/15/17 22:57 03/15/17 22:12 64 18 128/64 (85) 96 Room Air 03/15/17 19:42 95 Room Air 03/15/17 19:41 157/68 (97) 03/15/17 16:45 98.0 86 16 144/75 (98) 99 Physical Exam GENERAL: This is a well-nourished, well-developed patient, in no apparent distress. SKIN: No rashes, ecchymoses or lesions. Cool and dry. HEAD: Atraumatic. Normocephalic. No temporal or scalp tenderness. EYES: Pupils equal round and reactive. Extraocular motions intact. No scleral icterus. No injection or drainage. ENT: Nose without bleeding, purulent drainage or septal hematoma. Throat without erythema, tonsillar hypertrophy or exudate. Uvula midline. Airway patent. NECK: Trachea midline. No JVD or lymphadenopathy. Supple, nontender, no meningeal signs. CARDIOVASCULAR: Regular rate and rhythm without murmurs, gallops, or rubs. RESPIRATORY: Clear to auscultation. Breath sounds equal bilaterally. No wheezes , rales, or rhonchi. GASTROINTESTINAL: Abdomen soft, non-tender, nondistended. No hepato-splenomegaly , or palpable masses. No guarding. MUSCULOSKELETAL: Extremities without clubbing, cyanosis, or edema. No joint tenderness, effusion, or edema noted. No calf tenderness. Negative Homans sign bilaterally. NEUROLOGICAL: Awake and alert. Cranial nerves II through XII intact. Motor and sensory grossly within normal limits. Five out of 5 muscle strength in all muscle groups. Normal speech. Laboratory Laboratory Tests Test 03/15/17 18:50 03/15/17 19:34 03/16/17 05:50 Urine Color YELLOW Urine Turbidity CLEAR Urine pH 6.0 Urine Specific [place] 1.022 Urine Protein NEG Urine Glucose (UA) 250 Urine Ketones NEG Urine Occult Blood NEG Urine Nitrite NEG Urine Bilirubin NEG Urine Leukocyte Esterase NEG Urine RBC 0-3 Urine WBC 3-5 Urine Squamous Epithelial Cells 0-5 Urine Renal Epithelial Cells 0-5 Urine Mucus FEW Microscopic Urinalysis Comment CATH-CULT NOT IND White Blood Count 13.0 10.5 Red Blood Count 5.14 4.34 Hemoglobin 13.0 11.1 Hematocrit 41.0 34.9 Mean Corpuscular Volume 79.8 80.4 Mean Corpuscular Hemoglobin 25.3 25.5 Mean Corpuscular Hemoglobin Concent 31.7 31.7 Red Cell Distribution Width 17.0 17.4 Platelet Count 187 139 Mean Platelet Volume 8.6 9.0 Neutrophils (%) (Auto) 76.6 76.5 Lymphocytes (%) (Auto) 11.8 13.1 Monocytes (%) (Auto) 6.3 6.4 Eosinophils (%) (Auto) 0.4 0.5 Basophils (%) (Auto) 4.9 3.5 Neutrophils # (Auto) 10.0 7.9 Lymphocytes # (Auto) 1.5 1.4 Monocytes # (Auto) 0.8 0.7 Eosinophils # (Auto) 0.1 0.1 Basophils # (Auto) 0.6 0.4 CBC Comment DIFF FINAL AUTO DIFF Differential Comment AUTO DIFF CONFIRMED Prothrombin Time 10.3 Prothromb Time International Ratio 1.0 Activated Partial Thromboplast Time 17.8 Blood Urea Nitrogen 21 18 Creatinine 0.76 0.62 Random Glucose 137 135 Total Protein 6.4 Albumin 3.0 Calcium Level 8.6 8.2 Alkaline Phosphatase 91 Aspartate Amino Transf (AST/SGOT) 10 Alanine Aminotransferase (ALT/SGPT) 17 Total Bilirubin 0.9 Sodium Level 139 140 Potassium Level 4.4 4.3 Chloride Level 104 106 Carbon Dioxide Level 27.6 28.3 Anion Gap 7 6 Estimat Glomerular Filtration Rate 72 91 Troponin I LESS THAN 0.02 Digoxin Level 0.8 Result Diagram: 03/16/1750 03/16/17 0550 Caprini VTE Risk Assessment Caprini VTE Risk Assessment: Mod/High Risk (score >= 2) VTE Pharm Contraindication: Documented Caprini Risk Assessment Model Point Value = 1 Point Value = 2 Point Value = 3 Point Value = 5 Age 41-60 Minor surgery BMI > 25 kg/m2 Swollen legs Varicose veins or History of unexplained or recurrent spontaneous Oral contraceptives or hormone replacement Sepsis (< 1 month) Serious lung disease, including pneumonia (< 1 month) Abnormal pulmonary function Acute myocardial infarction Congestive heart failure (< 1 month) History of inflammatory bowel disease Medical patient at bed rest Age 61-74 Arthroscopic surgery Major open surgery (> 45 min) Laparoscopic surgery (> 45 min) Malignancy Confined to bed (> 72 hours) Immobilizing plaster cast Central venous access Age >= 75 History of VTE Family history of VTE Factor V Leiden Prothrombin [id number] Lupus anticoagulant Anticardiolipin antibodies Elevated serum homocysteine Heparin-induced thrombocytopenia Other congenital or acquired thrombophilia Stroke (< 1 month) Elective arthroplasty Hip, pelvis, or leg fracture Acute spinal cord injury (< 1 month) Prophylaxis Regimen Total Risk Factor Score Risk Level Prophylaxis Regimen 0-1 Low Early ambulation 2 Moderate Order ONE of the following: *Sequential Compression Device (SCD) *Heparin 5000 units SQ BID 3-4 Higher Order ONE of the following medications: *Heparin 5000 units SQ TID *Enoxaparin/Lovenox 40 mg SQ daily (WT < 150 kg, CrCl > 30 mL/min) *Enoxaparin/Lovenox 30 mg SQ daily (WT < 150 kg, CrCl > 10-29 mL/min) *Enoxaparin/Lovenox 30 mg SQ BID (WT < 150 kg, CrCl > 30 mL/min) AND/OR *Sequential Compression Device (SCD) 5 or more Highest Order ONE of the following medications: *Heparin 5000 units SQ TID (Preferred with Epidurals) *Enoxaparin/Lovenox 40 mg SQ daily (WT < 150 kg, CrCl > 30 mL/min) *Enoxaparin/Lovenox 30 mg SQ daily (WT < 150 kg, CrCl > 10-29 mL/min) *Enoxaparin/Lovenox 30 mg SQ BID (WT < 150 kg, CrCl > 30 mL/min) AND *Sequential Compression Device (SCD) Assessment and Plan Problem List: (1) Brain mass ICD Code: G93.9 - Disorder of brain, unspecified Plan: This is new to this patient with multiple malignancies in the past. She would like that for all her options but would like to avoid surgery due to problems with intubation in the past as well as cardiac valve disease. Most of her oncological history has been in [place]. She does endorse diplopia and weight loss recently. Palliative care to follow-up as well as hematology/oncology for further management (2) Ataxia ICD Code: R27.0 - Ataxia, unspecified Plan: Likely secondary to brain mass we'll continue with efforts of occupational and physical therapy Patient will likely require placement at discharge and family and patient aren' t agreement (3) DM2 (diabetes mellitus, type 2) ICD Code: E11.9 - Type 2 diabetes mellitus without complications Plan: resume home insulin, diabetic diet Hypoglycemia protocol (4) HTN (hypertension) ICD Code: I10 - Essential (primary) hypertension Plan: Currently controlled on home regimen of losartan and metoprolol (5) Afib ICD Code: I48.91 - Unspecified atrial fibrillation Plan: Patient also with a history of congestive heart failure without any evidence of exacerbation at this time We'll continue with digoxin, Aldactone, metoprolol, aspirin and losartan Patient not only blood thinner due to frequent falls Physician Certification 2 Midnight Certification Type: Continued Stay Order for Inpatient Services The services are ordered in accordance with Medicare regulations or non- Medicare payer requirements, as applicable. In the case of services not specified as inpatient-only, they are appropriately provided as inpatient services in accordance with the 2-midnight benchmark. Estimated LOS (days): 2 2 days is the estimated time the patient will need to remain in the hospital, assuming treatment plan goals are met and no additional complications. Post-Hospital Plan: Home Violet Aleman MD Mar 16, 2017 15:09
--- NOTE | 2017-03-16 15:13 | PD.CONS ---
HPI Service Orthopedic Surgeons Consult Requested By Admitting physician Reason for Consult Dislocated right shoulder Primary Care Physician Jose Enrique uKmar M.D. Admission Diagnosis Dislocated shoulder ataxia, pontine mass Diagnoses: (1) Brain mass (2) Ataxia (3) DM2 (diabetes mellitus, type 2) (4) HTN (hypertension) (5) Afib Chief Complaint: Painful right shoulder History of Present Illness This patient is an 86-year-old female. She and her friend states he said some troubles on and off since October with right shoulder. She's had several falls. She has never had it evaluated and admitted doing quite well having nearly normal motion. The only time she has significant pain and when she goes to get up from a sitting position using the chair and she complains of pain in the region of the right shoulder. The patient was admitted recently after a fall and having evidence of a head injury. During that evaluation an x-ray the right shoulder was obtained showing evidence of a likely anterior dislocation right shoulder of a chronic nature. I have been asked to see the patient in consultation regarding the same Past Family Social History Past Medical History Melanoma in the right shoulder and left neck Colon cancer status post resection Multiple squamous cell carcinomas Breast cancer status post lumpectomy Non-Hodgkin's lymphoma Diabetes mellitus Hypertension Hypothyroidism Atrial fibrillation History of aortic tissue aortic valve replacement Mitral regurgitation Past Surgical History Aortic valve replacement, tissue, back surgery, partial thyroidectomy, colon resection, left mastectomy and lumpectomy Allergies: Coded Allergies: piperacillin (Verified Allergy, Severe, RASH, 03/15/17) tazobactam (Verified Allergy, Severe, RASH, 03/15/17) Sulfa (Sulfonamide Antibiotics) (Verified Allergy, Intermediate, Anaphylaxis, 03/15/17) sulindac (Verified Allergy, Intermediate, Anaphylaxis, 03/15/17) clarithromycin (Verified Allergy, Mild, Rash, 03/15/17) Active Ordered Medications Current Medications Medications (Trade) Dose Ordered Sig/Whit Route Start Time Stop Time Status Last Admin (NS Flush) 2 ml UNSCH PRN IV FLUSH 03/15/17 20:15 (NS Flush) 2 ml BID IV FLUSH 03/15/17 21:00 03/16/17 09:00 (Narcan Inj) 0.4 mg UNSCH PRN IV PUSH 03/15/17 20:15 (D50w (Vial) Inj) 50 ml UNSCH PRN IV PUSH 03/15/17 20:15 (Glucagon Inj) 1 mg UNSCH PRN OTHER 03/15/17 20:15 (Ecotrin Ec) 81 mg DAILY PO 03/17/17 09:00 (Lanoxin) 0.125 mg DAILY PO 03/17/17 09:00 (Cardizem Cd) 120 mg DAILY PO 03/17/17 09:00 (Synthroid) 88 mcg DAILY@0600 PO 03/17/17 06:00 (Cozaar) 12.5 mg DAILY PO 03/17/17 09:00 (Lopressor) 100 mg DAILY PO 03/17/17 09:00 (KCl) 20 meq DAILY PO 03/17/17 09:00 (Mirapex) 0.75 mg HS PO 03/16/17 21:00 (Aldactone) 25 mg DAILY PO 03/17/17 09:00 (Ultram) 50 mg Q6H PRN PO 03/16/17 12:15 (Tears Naturale Opth Soln) 1 drop UNSCH PRN EACH EYE 03/16/17 13:00 (Pill Splitter) 1 ea UNSCH PRN OTHER 03/16/17 12:45 (NovoLOG SUPPLEMENTAL SCALE) 1 ACHS SLIDING SCALE SQ 03/16/17 17:00 (Levemir Inj) 40 units BID SQ 03/16/17 21:00 (NovoLOG INJ) 15 units TIDAC SQ 03/16/17 17:00 Reported Meds & Active Scripts Active Reported Systane Opth Drops (Polyethylene Glycol-Propylene Glycol Opth Drp) 0.4-0.3% Soln 1 Drop EACH EYE PRN PRN Torsemide 20 Mg Tab 20 Mg PO DAILY Aspirin DR (Aspirin) 81 Mg Tabdr 81 Mg PO DAILY Pramipexole (Pramipexole Dihydrochloride) 0.25 Mg Tab 0.75 Mg PO HS Metoprolol Tartrate 100 Mg Tab 100 Mg PO DAILY Tramadol (Tramadol HCl) 50 Mg Tab 50 Mg PO Q6H PRN Spironolactone 25 Mg Tab 25 Mg PO DAILY Cartia Xt (Diltiazem ER 24 HR) 120 Mg Caper 120 Mg PO DAILY Metformin (Metformin HCl) 1,000 Mg Tab 1,000 Mg PO BIDPC With meals Losartan (Losartan Potassium) 25 Mg Tab 12.5 Mg PO DAILY Metolazone 2.5 Mg Tab 2.5 Mg PO 2 TIMES A WEEK Digoxin 0.125 Mg Tab 0.125 Mg PO DAILY Levothyroxine (Levothyroxine Sodium) 88 Mcg Tab 88 Mcg PO DAILY Klor-Con M20 (Potassium Chloride Microencaps) 20 Meq Tab 20 Meq PO DAILY Humalog Inj (Insulin Human Lispro) 1,000 Unit/10 Ml Vial 15 Units SQ TIDAC Levemir Inj (Insulin Detemir) 1,000 unit/ 10 ML Vial 40 Units SQ BID Do not mix with any other Insulin. 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 Social History No current tobacco or alcohol dependency, although she does drink infrequently and has quit tobacco in the 90s after 40 years Lives with her daughter Physical Exam Vital Signs Vital Signs Date Time Temp Pulse Resp B/P (MAP) Pulse Ox O2 Delivery O2 Flow Rate FiO2 03/16/17 12:00 96.4 95 12 131/90 (104) 100 03/16/17 08:03 83 03/16/17 08:00 96.2 84 18 138/76 (96) 96 03/16/17 04:00 97.9 84 20 129/60 (83) 94 03/15/17 23:00 97.0 77 20 130/58 (82) 96 03/15/17 22:57 03/15/17 22:12 64 18 128/64 (85) 96 Room Air 03/15/17 19:42 95 Room Air 03/15/17 19:41 157/68 (97) 03/15/17 16:45 98.0 86 16 144/75 (98) 99 Physical Exam HEENT: Normocephalic atraumatic pupils equal round reactive. NECK: Supple. No abnormal masses. Full range of motion. CHEST: Clear to auscultation with no rales or rhonchi's or wheezes. HEART: Regular rate and rhythm. No murmurs. ABDOMEN: Soft, nontender, no masses. Normal active bowel sounds. GENITOURINARY: Deferred MUSCULOSKELETAL: Right shoulder has a mild deformity. She has surprisingly very good motion without much discomfort. She is able to forward flexion over 90 abduction 70 no pain with internal and external rotation. No tenderness at the elbow and wrist or hand. Sensation is normal. She wiggles her fingers easily. Laboratory Laboratory Tests Test 03/15/17 18:50 03/15/17 19:34 03/16/17 05:50 Urine Color YELLOW Urine Turbidity CLEAR Urine pH 6.0 Urine Specific [place] 1.022 Urine Protein NEG Urine Glucose (UA) 250 Urine Ketones NEG Urine Occult Blood NEG Urine Nitrite NEG Urine Bilirubin NEG Urine Leukocyte Esterase NEG Urine RBC 0-3 Urine WBC 3-5 Urine Squamous Epithelial Cells 0-5 Urine Renal Epithelial Cells 0-5 Urine Mucus FEW Microscopic Urinalysis Comment CATH-CULT NOT IND White Blood Count 13.0 10.5 Red Blood Count 5.14 4.34 Hemoglobin 13.0 11.1 Hematocrit 41.0 34.9 Mean Corpuscular Volume 79.8 80.4 Mean Corpuscular Hemoglobin 25.3 25.5 Mean Corpuscular Hemoglobin Concent 31.7 31.7 Red Cell Distribution Width 17.0 17.4 Platelet Count 187 139 Mean Platelet Volume 8.6 9.0 Neutrophils (%) (Auto) 76.6 76.5 Lymphocytes (%) (Auto) 11.8 13.1 Monocytes (%) (Auto) 6.3 6.4 Eosinophils (%) (Auto) 0.4 0.5 Basophils (%) (Auto) 4.9 3.5 Neutrophils # (Auto) 10.0 7.9 Lymphocytes # (Auto) 1.5 1.4 Monocytes # (Auto) 0.8 0.7 Eosinophils # (Auto) 0.1 0.1 Basophils # (Auto) 0.6 0.4 CBC Comment DIFF FINAL AUTO DIFF Differential Comment AUTO DIFF CONFIRMED Prothrombin Time 10.3 Prothromb Time International Ratio 1.0 Activated Partial Thromboplast Time 17.8 Blood Urea Nitrogen 21 18 Creatinine 0.76 0.62 Random Glucose 137 135 Total Protein 6.4 Albumin 3.0 Calcium Level 8.6 8.2 Alkaline Phosphatase 91 Aspartate Amino Transf (AST/SGOT) 10 Alanine Aminotransferase (ALT/SGPT) 17 Total Bilirubin 0.9 Sodium Level 139 140 Potassium Level 4.4 4.3 Chloride Level 104 106 Carbon Dioxide Level 27.6 28.3 Anion Gap 7 6 Estimat Glomerular Filtration Rate 72 91 Troponin I LESS THAN 0.02 Digoxin Level 0.8 Result Diagram: 03/16/17 0550 03/16/17 0550 Imaging X-rays reviewed and review of the radiologist's interpretation is consistent with an anterior dislocation of the right glenohumeral joint. Likely this is a chronic dislocation although no significant chronic findings are noted on these studies Assessment & Plan Assessment and Plan Dislocated right shoulder, chronic. PLAN: The sling is not likely going to make any difference in her care and I recommended be discontinued. Increase activities to tolerance. Surgical treatment for this would likely have to be an open reduction with repair of the anterior capsule of the right shoulder joint. Because she has excellent function with very little pain, I would recommend nonsurgical treatment at this time. This was discussed with the patient and the patient's "best friend". It was agreed to proceed forward with nonsurgical treatment Shayne Lucio MD Mar 16, 2017 15:13
--- NOTE | 2017-03-16 15:56 | HHI.HCPN ---
Palliative care consulted to assist with goals of care for Ms. Meeks. Spoke with daughter and family meeting schedule for tomorrow, Monday03/17/17 at 930am. Following psychosocial information obtained from daughter, Loretta. * Originally from [place], moved to [place] 3 years ago due to cold weather * since 2002 * 3 living daughters: Loretta (local- been living with mom for 15 years), 1 in [place] and 1 in [place] * Worked as a secretary of police * Enjoys gambling and playing bingo * Mom lymphoma, dad lung cancer * 2 sisters: 1 in [place] (also found to have a brain mass, surgical resection) , 1 in [place] (lung cancer, ?parkinsons, "doing ok") * Denies alcohol use, tobacco use for 30-35 years 1PPD quit 1989 * Taoism shinto, welcomes telephone repairer support: him specialist notified Loretta reported advanced directives (living will and health care surrogate) recently updated. She will bring copies to family meeting tomorrow, will need these to be faxed to HIM to be scanned into EMR. Reports health care surrogate names her as health care decision maker. Prior to hospitalization, Ms. Meeks has been living with daughter Loretta for the past 15 years. She was able to do some of her ADLs but needed assistance. Home health was visiting due to edema, physical therapy engaged and "did well when she did it". Loretta noticed a change about 2-3 weeks ago; started as a change in vision while playing bingo, progressed to multiple falls, including 2 yesterday which prompted the trip to the hospital. Loretta reports one of mom's biggest requests is that medical team and staff speak with the patient directly, not to family. She is hard of hearing but daughter plans to bring in a pair of her old hearing aids. Palliative care will continue to follow throughout hospitalization. Family meeting to address goals of care pending tomorrow, Monday03/17/17 at 930am. Deepa Fontaine, MONOTYPE SETTER Mar 16, 2017 15:56
[2017-03-16 16:00] VITALS: BP 140/66; PULSE 18; RESP 18; TEMP 97.2; O2SAT 100
[2017-03-16] MEDS: INSULIN ASPART SUPPLEMENTAL SCALE SQ SCH ×2 (17:00→20:19)
[2017-03-16] MEDS: INSULIN ASPART 1,000 UNITS/10 ML VIAL SQ SCH (17:17)
--- NOTE | 2017-03-16 19:51 | MB ---
cc: ROCAEL DE LA ROSA MD DATE OF CONSULTATION: 03/16/17 DATE OF : 1930 CHIEF COMPLAINT A 13 x 13 x 10 mm mass in the right cerebral peduncle consistent with a primary malignancy. HISTORY OF PRESENT ILLNESS Ms. Meeks is an 86-year-old lady with a history of multiple past cancer diagnosis and treatments including melanoma, colon cancer, squamous cell carcinoma of the skin, breast cancer and non-Hodgkin's lymphoma. She presented to the hospital with multiple falls in the past that had been progressively worsening over the last week. Imaging studies including CT and MRI revealed suspicion for a primary malignancy. The patient is concerned about going to rehab. She is sitting in bedside chair, family including two daughters and grandson are at bedside. PAST MEDICAL HISTORY 1. Melanoma. 2. Colon cancer. 3. Removal of multiple squamous cell skin cancers. 4. Breast cancer. 5. Non-Hodgkin's lymphoma. 6. Diabetes. 7. Hypertension. 8. Hypothyroidism. 9. Atrial fibrillation. 10. Heart valve issues including aortic valve replacement and mitral regurgitation. ALLERGIES ZOSYN, SULFA, CLARITHROMYCIN. FAMILY HISTORY Sister with a history of meningioma. SOCIAL HISTORY Denies tobacco and alcohol use. She lives in the [facility] with her daughter. She previously lived in [place] and most of her cancer care has been in that state. PHYSICAL EXAMINATION VITAL SIGNS: Temperature 96.4, pulse 95, respiratory rate 12, blood pressure 131/90, pulse ox is 100% on room air. GENERAL: An elderly lady in no distress. RESPIRATORY: No respiratory distress. No accessory muscle use. SKIN: With no rashes or bruises. PSYCHIATRIC: Appropriate mood and affect. ENT: Hard of hearing. NEUROLOGIC: Grossly nonfocal. The patient today in bedside chair. ASSESSMENT AND PLAN 1. 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 Discussed options with patient and family. She has been seen by the palliative care team. At this point in time, they report that they would ideally like to have treatment as minimal and minimally invasive as possible. Patient and family would like to discuss with the neurosugery team about this brain lesion. They would like to know likely diagnosis (understanding that the only way to truly know the type of tumor is by biopsy) and potential treatment options (including Gamma Knife, surgery). I think that it is certainly reasonable to gather as much information as the family can before they make a decision about pursuing treatment versus pursuing palliative care. Oncology service will continue to follow along. MD DESIRE Galvan/BJLilliam /5:45 PM /7:25 PM VIOLETA
[2017-03-16 20:00] VITALS: BP 160/75; PULSE 96; RESP 20; TEMP 96.3; O2SAT 97
[2017-03-16] MEDS: PRAMIPEXOLE DIHYDROCHLORIDE 0.25 MG TAB PO SCH (20:19)
[2017-03-16] MEDS ORDERED: INSULIN DETEMIR 100 UNITS/ML VIAL SQ SCH (21:00)
--- NOTE | 2017-03-16 22:27 | EKG ---
Date Performed: 03/15/2017 Time Performed: 17:54:10 PTAGE: 86 years EKG: ATRIAL FIBRILLATION INFERIOR MYOCARDIAL INFARCTION ANTEROSEPTAL MYOCARDIAL INFARCTION ABNOR MAL ECG PREVIOUS TRACING : 11/12/2016 13.15 Since previous tracing, no significant change noted DOCTOR: Raudel Covarrubias Interpretating Date/Time 03/16/2017 22:25:43
[2017-03-17] VITALS (7 sets, daily range): BP systolic 109–160; BP diastolic 59–79; PULSE 79–121; RESP 12–24; TEMP 97–98.5; O2SAT 93–97
[2017-03-17] MEDS: LEVOTHYROXINE SODIUM 88 MCG TAB PO SCH (05:06)
[2017-03-17] MEDS: INSULIN ASPART SUPPLEMENTAL SCALE SQ SCH ×4 (08:00→20:44)
[2017-03-17] MEDS: POTASSIUM CHLORIDE 20 MEQ CONTROLLED RELEASE TAB PO SCH (08:58)
[2017-03-17] MEDS: ASPIRIN EC 81 MG TABEC PO SCH (08:59)
[2017-03-17] MEDS: METOPROLOL TARTRATE 100 MG TAB PO SCH (08:59)
[2017-03-17] MEDS: DILTIAZEM-CD 120 MG CAP ER PO SCH (08:59)
[2017-03-17] MEDS: DIGOXIN 0.125 MG TAB PO SCH (08:59)
[2017-03-17] MEDS: SPIRONOLACTONE 25 MG TAB PO SCH (08:59)
[2017-03-17] MEDS: LOSARTAN 25 MG TAB PO SCH (08:59)
[2017-03-17] MEDS: SODIUM CHLORIDE 0.9% FLUSH 10 ML FLUSH IV FLUSH SCH ×2 (09:00→20:44)
--- NOTE | 2017-03-17 09:14 | PD.CONS ---
Consult Service Palliative Care Consult Requested By Dr. Aleman . Primary Care Physician Jose Enrique Kumar M.D. . Reason for Consultation a. To assist with evaluation and management of symptoms including: pain, gait disturbance b. To assist medical decision maker(s) with: better understanding of current medical conditions; weighing benefits/burdens of medical treatment options; making medical treatment decisions. . HPI History of Present Illness This 86-year-old female, with a past history of multiple previous malignancies, diabetes, CHF, atrial fibrillation, and anemia, reportedly had been losing some weight in recent weeks, and for a couple weeks developed a worsening gait disturbance that resulted in multiple falls, including 2 falls on the day of admission. The patient had reportedly struck her head on at least one fall, and her chronic shoulder pain seemed worse. 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 Atrophy was present. The patient was admitted for further evaluation. Orthopedic surgery saw the patient, and has recommended nonsurgical treatment at this point in time. The patient has been declining somewhat over the past 5 or 6 months, with some increased weakness, weight loss of about 20 pounds, and now the unsteady gait and falls. The patient has some pain in her right shoulder, but that is primarily only if she moves it. She is not in pain at rest, is not dyspneic, and has no nausea. She has not had a seizure or confusion. Palliative Care was consulted to assist with symptom management, and to enter into discussions with the patient and family regarding her current illnesses, the prognosis, and the benefits and burdens of the various treatment choices. . Function/Cognitive Trajectory The patient has been living with her daughter for 15 years, and in recent months has required some assistance with ADLs. She has been using a walker most of the time for the past 3 years. Her gait was quite unsteady the past couple weeks, and she was reluctant to ambulate now because of the tendency to fall back. . Review of Systems Constitutional: COMPLAINS OF: Weight loss Endocrine: DENIES: Polyuria Eyes: DENIES: Eye inflammation Ears, nose, mouth, throat: DENIES: Epistaxis Respiratory: DENIES: Shortness of breath Cardiovascular: DENIES: Chest pain, Dyspnea on Exertion Gastrointestinal: DENIES: Bloody stools, Diarrhea, Vomiting, Vomiting blood Genitourinary: DENIES: Hematuria Musculoskeletal: COMPLAINS OF: Joint pain (shoulder) Integumentary: DENIES: Rash Hematologic/Lymphatics: DENIES: Bruising Immunologic/Allergic: DENIES: Urticaria Neurologic: COMPLAINS OF: Abnormal gait, DENIES: Seizures Psychiatric: DENIES: Hallucinations, Agitation Past Family Social History Coded Allergies: piperacillin (Verified Allergy, Severe, RASH, 03/15/17) tazobactam (Verified Allergy, Severe, RASH, 03/15/17) Sulfa (Sulfonamide Antibiotics) (Verified Allergy, Intermediate, Anaphylaxis, 03/15/17) sulindac (Verified Allergy, Intermediate, Anaphylaxis, 03/15/17) clarithromycin (Verified Allergy, Mild, Rash, 03/15/17) Past Medical History * Diabetes * History of CHF * COPD * Atrial fibrillation * Chronic anemia * Thyroid disease * Chronic lymphedema, legs * Hypertension * Chronic right shoulder pain, recurrent anterior dislocation * Valvular heart disease, mitral regurgitation * Hearing loss * History of melanoma * History of colon cancer * History of breast cancer * History of non-Hodgkin's lymphoma * History of multiple squamous cell skin cancers . Past Surgical History * Aortic valve replacement * back surgery * partial thyroidectomy * colon resection * left mastectomy and lumpectomy * Multiple squamous cell skin cancers . Reported Medications Reported Meds & Active Scripts Active Reported Systane Opth Drops (Polyethylene Glycol-Propylene Glycol Opth Drp) 0.4-0.3% Soln 1 Drop EACH EYE PRN PRN Torsemide 20 Mg Tab 20 Mg PO DAILY Aspirin DR (Aspirin) 81 Mg Tabdr 81 Mg PO DAILY Pramipexole (Pramipexole Dihydrochloride) 0.25 Mg Tab 0.75 Mg PO HS Metoprolol Tartrate 100 Mg Tab 100 Mg PO DAILY Tramadol (Tramadol HCl) 50 Mg Tab 50 Mg PO Q6H PRN Spironolactone 25 Mg Tab 25 Mg PO DAILY Cartia Xt (Diltiazem ER 24 HR) 120 Mg Caper 120 Mg PO DAILY Metformin (Metformin HCl) 1,000 Mg Tab 1,000 Mg PO BIDPC With meals Losartan (Losartan Potassium) 25 Mg Tab 12.5 Mg PO DAILY Metolazone 2.5 Mg Tab 2.5 Mg PO 2 TIMES A WEEK Digoxin 0.125 Mg Tab 0.125 Mg PO DAILY Levothyroxine (Levothyroxine Sodium) 88 Mcg Tab 88 Mcg PO DAILY Klor-Con M20 (Potassium Chloride Microencaps) 20 Meq Tab 20 Meq PO DAILY Humalog Inj (Insulin Human Lispro) 1,000 Unit/10 Ml Vial 15 Units SQ TIDAC Levemir Inj (Insulin Detemir) 1,000 unit/ 10 ML Vial 40 Units SQ BID Do not mix with any other Insulin. . Current Medications Medications (Trade) Dose Ordered Sig/Whit Route Start Time Stop Time Status Last Admin (NS Flush) 2 ml UNSCH PRN IV FLUSH 03/15/17 20:15 (NS Flush) 2 ml BID IV FLUSH 03/15/17 21:00 03/16/17 20:19 (Narcan Inj) 0.4 mg UNSCH PRN IV PUSH 03/15/17 20:15 (D50w (Vial) Inj) 50 ml UNSCH PRN IV PUSH 03/15/17 20:15 (Glucagon Inj) 1 mg UNSCH PRN OTHER 03/15/17 20:15 (Ecotrin Ec) 81 mg DAILY PO 03/17/17 09:00 (Lanoxin) 0.125 mg DAILY PO 03/17/17 09:00 (Cardizem Cd) 120 mg DAILY PO 03/17/17 09:00 (Synthroid) 88 mcg DAILY@0600 PO 03/17/17 06:00 03/17/17 05:06 (Cozaar) 12.5 mg DAILY PO 03/17/17 09:00 (Lopressor) 100 mg DAILY PO 03/17/17 09:00 (KCl) 20 meq DAILY PO 03/17/17 09:00 (Mirapex) 0.75 mg HS PO 03/16/17 21:00 03/16/17 20:19 (Aldactone) 25 mg DAILY PO 03/17/17 09:00 (Ultram) 50 mg Q6H PRN PO 03/16/17 12:15 (Tears Naturale Opth Soln) 1 drop UNSCH PRN EACH EYE 03/16/17 13:00 (Pill Splitter) 1 ea UNSCH PRN OTHER 03/16/17 12:45 (NovoLOG SUPPLEMENTAL SCALE) 1 ACHS SLIDING SCALE SQ 03/16/17 17:00 03/16/17 20:19 (Levemir Inj) 40 units BID SQ 03/16/17 21:00 03/16/17 20:20 (NovoLOG INJ) 15 units TIDAC SQ 03/16/17 17:00 03/16/17 17:17 Family History Mother had non-Hodgkin's lymphoma, father of lung cancer. One sister had a brain tumor (meningioma). The patient's daughter has stage IV renal cell cancer. . Substance Use Tobacco: Smoked for 40 years but quit 24 years ago. Alcohol: None Prescription med abuse: None Illicits: None . Psychosocial History The patient was born and raised in [place], but moved to this area about 3 years ago. The patient has lived with her daughter Loretta for nearly 15 years. She was once, in 2002. She has 3 daughters, one living locally. The patient worked as a press secretary in the past. . Spiritual/Cultural Factors The patient has a Yazdanism background, and she is open to assembly stock supervisor visits. . Living Will: Copy in medical record Health Care Surrogate: Copy in medical record Health Care Surrogate(s): Kaley Burgos . Documented care wishes: Patient has a living will. . Today's verbally stated goals: The patient would like to consult with the neurosurgeon and get their opinion regarding what kind of tumor this may be and what treatment options may be available. She would not want to have a craniotomy. Regarding resuscitation, the patient does not want to be on a ventilator or life support, and the patient and her daughter's request no intubation. . Family/friends goals: The patient's daughters Josselyn and Loretta support the patient's wishes. . Ethical and Legal Issues There are no ethical issues that would impact her care or decision-making at this time. The patient has capacity for decision-making, and she has designated her daughter Loretta as healthcare surrogate. . Physical Exam Vital Signs Date Time Temp Pulse Resp B/P (MAP) Pulse Ox O2 Delivery O2 Flow Rate FiO2 03/17/17 04:00 97.0 120 20 120/79 (93) 94 03/17/17 00:00 97.1 114 16 132/59 (83) 97 03/16/17 20:00 96.3 96 20 160/75 (103) 97 03/16/17 20:00 96 03/16/17 16:00 97.2 18 18 140/66 (90) 100 03/16/17 12:00 96.4 95 12 131/90 (104) 100 Exam CONSTITUTIONAL/GENERAL: This is an elderly, somewhat weak patient, in no apparent distress. TUBES/LINES/DRAINS: IV access SKIN: No jaundice, rashes, or lesions. Ecchymoses on upper extremities. No wounds seen anteriorly. Skin temperature appropriate. Not diaphoretic. HEAD: Atraumatic. Normocephalic. EYES: Pupils equal and round and reactive. Extraocular motions intact. No scleral icterus. No injection or drainage. Fundi not examined. ENT: Hearing somewhat diminished. Nose without bleeding or purulent drainage. NECK: Trachea midline. Supple, nontender. No palpable thyroid enlargement or nodularity. CARDIOVASCULAR: Irregular rhythm without murmurs, gallops, or rubs. No JVD. Peripheral pulses symmetric. RESPIRATORY/CHEST: Symmetric, unlabored respirations. Clear to auscultation. Breath sounds equal bilaterally. No wheezes, rales, or rhonchi. GASTROINTESTINAL: Abdomen soft, non-tender, nondistended. No hepato-splenomegaly , or palpable masses. No guarding. Bowel sounds present. GENITOURINARY: Without palpable bladder distension. MUSCULOSKELETAL: Extremities without clubbing or cyanosis. There is chronic 2+ edema below the knees and some scaly venous insufficiency changes. No joint tenderness or effusion noted. No calf tenderness. No mottling or clubbing. LYMPHATICS: No palpable cervical or supraclavicular adenopathy. NEUROLOGICAL: Awake and alert. Motor and sensory grossly within normal limits. Follows commands. Cognitively sharp. Moves all extremities. PSYCHIATRIC: No obvious anxiety/depression. no apparent hallucinations or other psychotic thought process. . Diagnostic Tests Laboratory Laboratory Tests Test 03/15/17 18:50 03/15/17 19:34 03/16/17 05:50 Urine Color YELLOW (YELLW/STRAW) Urine Turbidity CLEAR (CLEAR) Urine pH 6.0 (5.0-8.5) Urine Specific [place] 1.022 (1.002-1.035) Urine Protein NEG mg/dL (NEG-TRACE) Urine Glucose (UA) 250 mg/dL (NEG) Urine Ketones NEG mg/dL (NEG) Urine Occult Blood NEG (NEG) Urine Nitrite NEG (NEG) Urine Bilirubin NEG (NEG) Urine Leukocyte Esterase NEG (NEG) Urine RBC 0-3 /hpf (0-3) Urine WBC 3-5 /hpf (0-5) Urine Squamous Epithelial Cells 0-5 /hpf (0-5) Urine Renal Epithelial Cells 0-5 /hpf (NONE) Urine Mucus FEW /lpf (OCC) Microscopic Urinalysis Comment CATH-CULT NOT IND White Blood Count 13.0 TH/MM3 (4.0-11.0) 10.5 TH/MM3 (4.0-11.0) Red Blood Count 5.14 MIL/MM3 (4.00-5.30) 4.34 MIL/MM3 (4.00-5.30) Hemoglobin 13.0 GM/DL (11.6-15.3) 11.1 GM/DL (11.6-15.3) Hematocrit 41.0 % (35.0-46.0) 34.9 % (35.0-46.0) Mean Corpuscular Volume 79.8 FL (80.0-100.0) 80.4 FL (80.0-100.0) Mean Corpuscular Hemoglobin 25.3 PG (27.0-34.0) 25.5 PG (27.0-34.0) Mean Corpuscular Hemoglobin Concent 31.7 % (32.0-36.0) 31.7 % (32.0-36.0) Red Cell Distribution Width 17.0 % (11.6-17.2) 17.4 % (11.6-17.2) Platelet Count 187 TH/MM3 (150-450) 139 TH/MM3 (150-450) Mean Platelet Volume 8.6 FL (7.0-11.0) 9.0 FL (7.0-11.0) Neutrophils (%) (Auto) 76.6 % (16.0-70.0) 76.5 % (16.0-70.0) Lymphocytes (%) (Auto) 11.8 % (9.0-44.0) 13.1 % (9.0-44.0) Monocytes (%) (Auto) 6.3 % (0.0-8.0) 6.4 % (0.0-8.0) Eosinophils (%) (Auto) 0.4 % (0.0-4.0) 0.5 % (0.0-4.0) Basophils (%) (Auto) 4.9 % (0.0-2.0) 3.5 % (0.0-2.0) Neutrophils # (Auto) 10.0 TH/MM3 (1.8-7.7) 7.9 TH/MM3 (1.8-7.7) Lymphocytes # (Auto) 1.5 TH/MM3 (1.0-4.8) 1.4 TH/MM3 (1.0-4.8) Monocytes # (Auto) 0.8 TH/MM3 (0-0.9) 0.7 TH/MM3 (0-0.9) Eosinophils # (Auto) 0.1 TH/MM3 (0-0.4) 0.1 TH/MM3 (0-0.4) Basophils # (Auto) 0.6 TH/MM3 (0-0.2) 0.4 TH/MM3 (0-0.2) CBC Comment DIFF FINAL AUTO DIFF Differential Comment AUTO DIFF CONFIRMED Prothrombin Time 10.3 SEC (9.8-11.6) Prothromb Time International Ratio 1.0 RATIO Activated Partial Thromboplast Time 17.8 SEC (24.3-30.1) Blood Urea Nitrogen 21 MG/DL (7-18) 18 MG/DL (7-18) Creatinine 0.76 MG/DL (0.50-1.00) 0.62 MG/DL (0.50-1.00) Random Glucose 137 MG/DL (74-106) 135 MG/DL (74-106) Total Protein 6.4 GM/DL (6.4-8.2) Albumin 3.0 GM/DL (3.4-5.0) Calcium Level 8.6 MG/DL (8.5-10.1) 8.2 MG/DL (8.5-10.1) Alkaline Phosphatase 91 U/L (45-117) Aspartate Amino Transf (AST/SGOT) 10 U/L (15-37) Alanine Aminotransferase (ALT/SGPT) 17 U/L (10-53) Total Bilirubin 0.9 MG/DL (0.2-1.0) Sodium Level 139 MEQ/L (136-145) 140 MEQ/L (136-145) Potassium Level 4.4 MEQ/L (3.5-5.1) 4.3 MEQ/L (3.5-5.1) Chloride Level 104 MEQ/L (98-107) 106 MEQ/L (98-107) Carbon Dioxide Level 27.6 MEQ/L (21.0-32.0) 28.3 MEQ/L (21.0-32.0) Anion Gap 7 MEQ/L (5-15) 6 MEQ/L (5-15) Estimat Glomerular Filtration Rate 72 ML/MIN (>89) 91 ML/MIN (>89) Troponin I LESS THAN 0.02 NG/ML Digoxin Level 0.8 NG/ML (0.8-2.0) Result Diagram: 03/16/17 0550 03/16/17 0550 Imaging Last Impressions Head CT 03/15/17 1743 Signed Impressions: Service Date/Time: Wednesday, March 15, 2017 18:08 - CONCLUSION: 1. 13 mm focus of increased density involving the right cerebral peduncle with characteristics more suggestive of a mass. I cannot completely exclude an intraparenchymal hemorrhage although this is an atypical location for this. MRI with and without gadolinium could be considered to further evaluate. 2. Atrophy. Lei Fontaine Jr., MD Shoulder X-Ray 03/15/17 0000 Signed Impressions: Service Date/Time: Wednesday, March 15, 2017 17:58 - CONCLUSION: Anterior dislocation. Lei Fontaine Jr., MD Humerus X-Ray 03/15/17 0000 Signed Impressions: Service Date/Time: Wednesday, March 15, 2017 17:58 - CONCLUSION: Anterior dislocation of the shoulder. Lei Fontaine Jr., MD Cervical Spine CT 03/15/17 0000 Signed Impressions: Service Date/Time: Wednesday, March 15, 2017 18:08 - CONCLUSION: 1. No fracture or dislocation. 2. Multilevel degenerative changes including areas of central canal stenosis and neural foraminal impingement as detailed at each level in the above discussion. Lei Fontaine Jr., MD Brain MRI 03/15/17 0000 Signed Impressions: Service Date/Time: Wednesday, March 15, 2017 21:26 - CONCLUSION: 1. 13 x 13 x 10 mm mass involving the right cerebral peduncle consistent with a primary malignancy. 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 2. Atrophy and chronic small vessel ischemic change. 3. No hemorrhage or acute infarction. Lei Fontaine Jr., MD Patient/Family Conference Present at Family Conference: Me, the patient, daughter Josselyn, daughter Loretta. . Family Conference Time (mins): 46 Family Conference Location: Bedside Issues Discussed: * Palliative care role, purpose, approach * Hospice care role, purpose, approach * Additional medical, psychosocial, and spiritual history * Patients general health, functional status, and cognitive changes in the months leading up to the current hospitalization * Patient/family understanding of the current medical problems * Patient/family understanding of prognosis * Patients goals of care as best understood from advance directives and/or conversations and/or values * Current medical treatment options and benefits/burdens of those options * Likely scenarios comparing ongoing aggressive care with a transition to comfort measures only * Questions answered to the best of my ability * Palliative care contact information provided The patient would like to consult with the neurosurgeon and get their opinion regarding what kind of tumor this may be and what treatment options may be available. She would not want to have a craniotomy. Regarding resuscitation, the patient does not want to be on a ventilator or life support, and the patient and her daughter's request no intubation. . 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 Spiritual: Yazdanism background, open to parcel post order clerk visits. Legal: The patient has capacity for decision-making, and she has designated her daughter Loretta as healthcare surrogate. Ethical issues impacting care: None . Important Contacts Daughter Loretta Meeks [phone] Daughter Josselyn Bolton (lives in [place]) [phone] . Prognosis With the patient's advanced age and debility, her overall prognosis is quite guarded. The brain mass is to be evaluated by neurosurgery to provide additional prognostic information. . Code Status: Alternative Code (no intubation) Plan * ALTERNATE CODE: The patient wants no intubation or ventilator, and her daughter's support that decision * DECISION-MAKING: The patient has capacity for decision-making, and she has designated her daughter Loretta as healthcare surrogate. * GOALS: The patient would like to consult with the neurosurgeon and get their opinion regarding what kind of tumor this may be and what treatment options may be available. She would not want to have a craniotomy. Regarding resuscitation , the patient does not want to be on a ventilator or life support, and the patient and her daughter's request no intubation. * SYMPTOMS: The patient is being kept in bed to protect her from additional falls and possible injury. Her shoulder pain is "not bad." I have no additional medication recommendations at this time. * Palliative Care will continue to follow the patient during this hospitalization. . Time Spent Total Floor Time (mins): 82 Face to Face Time (mins): 66 >50% Counseling/Coord of Care: Yes Thank you for the opportunity to participate in the care of Ms. Meeks. Attestation To help prompt me to consider important information that might be impacting today's encounter and assessment, information from prior notes written by myself or my colleagues may have been "brought forward" into today's note. My signature on this note, however, is an attestation that I personally performed the exam, history, and/or decision-making noted today, and, unless otherwise indicated, the interactions with patient, family, and staff as well as the review of records all occurred today. I also attest that the listed assessment and stated plan reflect my best clinical judgment today based on the combination of historical information, prior notes, and today's exam/ interactions. When time spent is documented, it refers only to time spent today by the signer, or if indicated, combined time spent today by collaborating physician/nurse practitioner. Tova Hodge MD Mar 17, 2017 09:14
[2017-03-17] MEDS: INSULIN ASPART 1,000 UNITS/10 ML VIAL SQ SCH ×3 (09:55→18:45)
[2017-03-17] MEDS ORDERED: DIATRIZOATE MEGLUM/DIATRIZOATE SOD 9 ML CUP PO ONE (11:00)
--- NOTE | 2017-03-17 12:26 | HHI.PR ---
Subjective Remarks Patient seen and evaluated today in follow-up for brain mass. No new events overnight. Patient would like to have a DO NOT RESUSCITATE listed on her chart. Patient also has complained of some dysuria. She has diarrhea infrequently all over the last several years and uses Imodium as needed. Objective Vitals Vital Signs Date Time Temp Pulse Resp B/P (MAP) Pulse Ox O2 Delivery O2 Flow Rate FiO2 03/17/17 08:00 97.8 121 24 157/76 (103) 96 03/17/17 04:00 97.0 120 20 120/79 (93) 94 03/17/17 00:00 97.1 114 16 132/59 (83) 97 03/16/17 20:00 96.3 96 20 160/75 (103) 97 03/16/17 20:00 96 03/16/17 16:00 97.2 18 18 140/66 (90) 100 I/O 03/16/17 03/16/17 03/16/17 03/17/17 03/17/17 03/17/17 07:00 15:00 23:00 07:00 15:00 23:00 Intake Total 120 ml 220 ml 200 ml 480 ml Output Total 1000 ml Balance 120 ml 220 ml -800 ml 480 ml Intake Oral 120 ml 220 ml 200 ml 480 ml Output Urine Total 1000 ml # Voids 2 4 # Bowel Movements 0 0 Result Diagram: 03/16/17 0550 03/16/17 0550 A/P Problem List: (1) Brain mass ICD Code: G93.9 - Disorder of brain, unspecified Plan: This is new to this patient with multiple malignancies in the past. She would like that for all her options but would like to avoid surgery due to problems with intubation in the past as well as cardiac valve disease. Most of her oncological history has been in [place]. She does endorse diplopia and weight loss recently. Palliative care consult appreciated hematology/oncology consult appreciated I spoke with hematology Dr. dr feng who recommends CT chest and abdomen to assess for any staging, and he will consult later today (2) Ataxia ICD Code: R27.0 - Ataxia, unspecified Plan: Likely secondary to brain mass we'll continue with efforts of occupational and physical therapy Patient will likely require placement at discharge and family and patient are in agreement (3) DM2 (diabetes mellitus, type 2) ICD Code: E11.9 - Type 2 diabetes mellitus without complications Plan: We will hold long-acting insulin and continue insulin with meals with sliding scale resume home insulin, diabetic diet Hypoglycemia protocol (4) HTN (hypertension) ICD Code: I10 - Essential (primary) hypertension Plan: Currently controlled on home regimen of losartan and metoprolol (5) Afib ICD Code: I48.91 - Unspecified atrial fibrillation Plan: Patient also with a history of congestive heart failure without any evidence of exacerbation at this time We'll continue with digoxin, Aldactone, metoprolol, aspirin and losartan Patient not only blood thinner due to frequent falls Discharge Planning likely discharge to shelter facility pending neurosurgery consult, Violet Valerio MD Mar 17, 2017 12:26
[2017-03-17] MEDS ORDERED: LOPERAMIDE HCL 2 MG CAP PO PRN (12:30)
--- NOTE | 2017-03-17 14:16 | PD.ONC.PN ---
Subjective Subjective Remarks Patient seen and examined, vital signs, labs, medications and imaging studies reviewed. Patient's daughter is at bedside along with the patient. Ms. Meeks reports recurrent falls at home due to generalized weakness, she also feels as if her left knee is "giving out ", blurry vision and progressive frailty. She was noted on imaging studies of the brain to have a 1.3 cm lesion involving the right midbrain. 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 The patient was seen yesterday by my associate Dr. Talamantes, a neurosurgical evaluation is pending. Objective Data Date Time Temp Pulse Resp B/P (MAP) Pulse Ox O2 Delivery O2 Flow Rate FiO2 03/17/17 08:12 114 03/17/17 08:00 97.8 121 24 157/76 (103) 96 03/17/17 04:00 97.0 120 20 120/79 (93) 94 03/17/17 00:00 97.1 114 16 132/59 (83) 97 03/16/17 20:00 96.3 96 20 160/75 (103) 97 03/16/17 20:00 96 03/16/17 16:00 97.2 18 18 140/66 (90) 100 03/17/17 03/17/17 03/17/17 07:00 15:00 23:00 Intake Total 480 ml Balance 480 ml Result Diagram: 03/16/17 0550 03/16/17 0550 Administered Medications Medications (Trade) Dose Ordered Sig/Whit Route PRN Reason Start Time Stop Time Status Last Admin Dose Admin Sodium Chloride (NS Flush) 2 ml BID IV FLUSH 03/15/17 21:00 03/17/17 09:00 Aspirin (Ecotrin Ec) 81 mg DAILY PO 03/17/17 09:00 03/17/17 08:59 Digoxin (Lanoxin) 0.125 mg DAILY PO 03/17/17 09:00 03/17/17 08:59 Diltiazem HCl (Cardizem Cd) 120 mg DAILY PO 03/17/17 09:00 03/17/17 08:59 Levothyroxine Sodium (Synthroid) 88 mcg DAILY@0600 PO 03/17/17 06:00 03/17/17 05:06 Losartan Potassium (Cozaar) 12.5 mg DAILY PO 03/17/17 09:00 03/17/17 08:59 Metoprolol Tartrate (Lopressor) 100 mg DAILY PO 03/17/17 09:00 03/17/17 08:59 Potassium Chloride (KCl) 20 meq DAILY PO 03/17/17 09:00 03/17/17 08:58 Pramipexole Dihydrochloride (Mirapex) 0.75 mg HS PO 03/16/17 21:00 03/16/17 20:19 Spironolactone (Aldactone) 25 mg DAILY PO 03/17/17 09:00 03/17/17 08:59 Insulin Aspart (NovoLOG SUPPLEMENTAL SCALE) 1 ACHS SLIDING SCALE SQ 03/16/17 17:00 03/16/17 20:19 Insulin Detemir (Levemir Inj) 40 units BID SQ 03/16/17 21:00 Future Hold 03/16/17 20:20 Insulin Aspart (NovoLOG INJ) 15 units TIDAC SQ 03/16/17 17:00 03/17/17 09:55 Objective Remarks GENERAL: Elderly, frail-appearing female sitting up in a stretcher. She appears to be no acute distress. SKIN: Warm and dry. HEAD: Normocephalic. EYES: No scleral icterus. No injection or drainage. NECK: Supple, trachea midline. No JVD or lymphadenopathy. LYMPHATIC: No adenopathy. CARDIOVASCULAR: Regular rate and rhythm without murmurs. RESPIRATORY: Breath sounds equal bilaterally. No accessory muscle use. Decreased bibasilar breath sounds. GASTROINTESTINAL: Abdomen soft, non-tender, nondistended. EXTREMITIES: No cyanosis, or edema. MUSCULOSKELETAL: Generally decreased muscle mass and tone. NEUROLOGICAL: No obvious focal deficit. Awake, alert, and oriented x3. PSYCHIATRIC: Appropriate mood and affect; insight and judgment normal. Assessment/Plan Assessment 86-year-old female presenting to the hospital with recurrent falls and blurry vision. MRI of the brain indicates a 13 mm lesion involving the right mid brain. The patient does have a history of multiple primary malignancies including breast carcinoma, melanoma, previous history of non-Hodgkin lymphoma and various cutaneous non-melanoma carcinomas. She is awaiting systemic staging workup to rule out any additional systemic disease burden with CT scans of the chest, abdomen and pelvis. It is not yet clear to me whether her MRI brain findings explain her recurrent falls. 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 Plan 1. Right midbrain mass: Await systemic staging studies. Await neurosurgical input. Should the systemic staging workup be negative and should the neurosurgical service assessed the intracranial findings to be consistent with a low-grade astrocytoma it may be reasonable to repeat MRI studies in 2-3 months to assess for stability. The patient expresses a reluctance to undergo biopsy of this lesion, she also indicates a reluctance to pursue aggressive therapeutic interventions such as radiation therapy unless she is certain this intervention will help reduce the number of falls. Rosendo Webster MD Mar 17, 2017 14:16
[2017-03-17] MEDS ORDERED: IOHEXOL 350 MG/ML 10 ML VIAL (for RAD DIAG) IVCONTRAST ONE (14:34)
--- NOTE | 2017-03-17 14:53 | RADRPT ---
EXAM DATE/TIME: 03/17/2017 14:06 [facility] COMPARISON: No previous studies available for comparison. INDICATIONS : Evaluate for metastatic disease. IV CONTRAST: 75 cc Omnipaque 350 (iohexol) IV ; Cumulative dose for multiple exams. RADIATION DOSE: 16.93 CTDIvol (mGy) ; Combined studies - Thorax/Abdomen/Pelvis MEDICAL HISTORY : Carcinoma, breast. Carcinoma, colon. Congestive heart failure.Lymphoma. Hypertension. Asthma. Diab etes. SURGICAL HISTORY : Mastectomy, left. Colon resection.Cholecystectomy.Appendectomy. Aortic valve replacement. ENCOUNTER: Initial ACUITY: 1 day PAIN SCALE: 0/10 LOCATION: chest TECHNIQUE: Volumetric scanning of the chest was performed. Using automated exposure control and adjustment of t he mA and/or kV according to patient size, radiation dose was kept as low as reasonably achievable to obtain optimal diagnostic quality images. DICOM format image data is available electronically for review and comparison. Follow-up recommendations for detected pulmonary nodules are based at a minimum on nodule size and pa tient risk factors according to Fleischner Society Guidelines. FINDINGS: The bony structures are intact other than evidence of prior median sternotomy and degenerative spurri ng of the thoracic spine. Axilla are clear. Mediastinum reveals left ventricular cardiomegaly with va scular calcifications in the aorta and great vessels as well as left anterior descending and circumfl ex coronary artery and dense calcification mitral valve annulus. Mediastinal hilar mass or adenopathy . There are small posterior pleural effusions layering at the bases with some mild associated naif sive atelectasis and there are 2 or 3 subcentimeter small nodules in the right lung base one in the r ight middle lobe 6 mm in size and the other is 4-5 mm in size in the peripheral right midlung field. These are of indeterminate significance. CONCLUSION: No definite evidence of pulmonary mass or adenopathy. There are small posterior layering bilateral pleural effusion s and 3 tiny subcentimeter nodules in the right mid and basilar lung field of indeterminate significa nce. As the atherosclerotic cardiovascular disease with prior me mari sternotomy and calcifications in the coronary arteries as well as mitral valve annulus. Xu Hanson MD on March 17, 2017 at 14:44 Board Certified Radiologist. This report was verified electronically.
--- NOTE | 2017-03-17 15:09 | RADRPT ---
EXAM DATE/TIME: 03/17/2017 14:06 [facility] COMPARISON: No previous studies available for comparison. INDICATIONS : Evaluate for metastatic disease. IV CONTRAST: 75 cc Omnipaque 350 (iohexol) IV ; Cumulative dose for multiple exams. ORAL CONTRAST: Prescribed oral contrast ingested. RADIATION DOSE: 16.93 CTDIvol (mGy) ; Combined studies - Thorax/Abdomen/Pelvis MEDICAL HISTORY : Carcinoma, breast. Carcinoma, colon. Congestive heart failure.Lymphoma. Hypertension. Asthma. Diab etes. SURGICAL HISTORY : Mastectomy, left. Colon resection.Colon resection.Appendectomy. Cholecystectomy. Aortic valve repla cement. ENCOUNTER: Initial ACUITY: 1 day PAIN SCALE: 0/10 LOCATION: Abdomen. TECHNIQUE: Volumetric scanning of the abdomen and pelvis was performed. Using automated exposure control and ad justment of the mA and/or kV according to patient size, radiation dose was kept as low as reasonably achievable to obtain optimal diagnostic quality images. DICOM format image data is available electro nically for review and comparison. FINDINGS: LOWER LUNGS: There are small bilateral pleural effusions and there is mild compressive atelectasis in the lung bas es. LIVER: There are couple of tiny probable liver cysts present. There is mild prominence of the intra-and extr a hepatic biliary tree post previous cholecystectomy. SPLEEN: Normal size without lesion. PANCREAS: Within normal limits. KIDNEYS: There is a peripherally calcified cystic mass involving the anterior upper pole cortex of the right k idney which measures 2.7 cm in diameter. The left kidney is unremarkable. ADRENAL GLANDS: There is a tiny low density nodule associated with the left adrenal gland. This is likely an adenoma. Right adrenal is unremarkable VASCULAR: Dense atherosclerotic vascular calcification involving abdominal aorta and iliacs. BOWEL/MESENTERY: The stomach, small bowel, and colon demonstrate no acute abnormality. There is no free intraperitone al air or fluid. ABDOMINAL WALL: Within normal limits. RETROPERITONEUM: There is no lymphadenopathy. BLADDER: Mildly dilated. REPRODUCTIVE: Within normal limits. INGUINAL: There is no lymphadenopathy or hernia. MUSCULOSKELETAL: Prominent degenerative changes in the spine and previous laminectomies. CONCLUSION: Nothing specifically suspicious for metastatic disease. Small bilateral pleural effusions and parenchymal changes in the lung bases. Probably benign small lesions in the liver and Bosniak category IIF right renal lesion, these finding s safe to follow Deven Williamson MD on March 17, 2017 at 14:52 Board Certified Radiologist. This report was verified electronically.
[2017-03-17 19:13] LABS: BILIRUBIN, URINE NEG (NEG); BLOOD, URINE LARGE (NEG); GLUCOSE,URINE NEG (NEG); KETONE, URINE NEG (NEG); NITRITE,URINE NEG (NEG); URINE LEUKOCYTE ESTERASE LARGE (NEG)
[2017-03-17 19:23] LABS: URINE COLOR YELLOW (YELLW/STRAW)
[2017-03-17 19:24] LABS: BACTERIA, URINE MANY /hpf; RBC, URINE 0-3 /hpf (0-3); SQUAMOUS EPITHELIAL CELL URINE 0-5 /hpf (0-5); WHITE BLOOD CELL CLUMPS MOD
[2017-03-17] MEDS: PRAMIPEXOLE DIHYDROCHLORIDE 0.25 MG TAB PO SCH (20:43)
[2017-03-17] MEDS: traMADol HCL 50 MG TAB PO PRN (20:44)
[2017-03-18] VITALS: BP 141/75; PULSE 105; RESP 18; TEMP 96.3; O2SAT 94
[2017-03-18] MEDS: LEVOTHYROXINE SODIUM 88 MCG TAB PO SCH (05:30)
[2017-03-18 08:00] VITALS: BP 126/89; PULSE 108; RESP 20; TEMP 97.4; O2SAT 93
[2017-03-18] MEDS: INSULIN ASPART 1,000 UNITS/10 ML VIAL SQ SCH ×3 (09:05→16:49)
[2017-03-18] MEDS: POTASSIUM CHLORIDE 20 MEQ CONTROLLED RELEASE TAB PO SCH (09:06)
[2017-03-18] MEDS: DIGOXIN 0.125 MG TAB PO SCH (09:06)
[2017-03-18] MEDS: INSULIN ASPART SUPPLEMENTAL SCALE SQ SCH ×4 (09:06→21:34)
[2017-03-18] MEDS: DILTIAZEM-CD 120 MG CAP ER PO SCH (09:06)
[2017-03-18] MEDS: LOSARTAN 25 MG TAB PO SCH (09:07)
[2017-03-18] MEDS: SPIRONOLACTONE 25 MG TAB PO SCH (09:07)
[2017-03-18] MEDS: SODIUM CHLORIDE 0.9% FLUSH 10 ML FLUSH IV FLUSH SCH ×2 (09:07→21:37)
[2017-03-18] MEDS: ASPIRIN EC 81 MG TABEC PO SCH (09:07)
[2017-03-18] MEDS: METOPROLOL TARTRATE 100 MG TAB PO SCH (09:07)
[2017-03-18 12:00] VITALS: BP 122/54; PULSE 67; RESP 18; TEMP 96.7; O2SAT 97
--- NOTE | 2017-03-18 14:33 | HHI.PR ---
Subjective Remarks Patient seen and evaluated today. No new complaints today. CT abdomen pelvis and chest unremarkable Objective Vitals Vital Signs Date Time Temp Pulse Resp B/P (MAP) Pulse Ox O2 Delivery O2 Flow Rate FiO2 03/18/17 12:00 96.7 67 18 122/54 (76) 97 03/18/17 08:00 97.4 108 20 126/89 (101) 93 03/18/17 00:00 96.3 105 18 141/75 (97) 94 03/17/17 21:44 18 03/17/17 20:00 98.5 92 18 160/79 (106) 93 03/17/17 16:00 97.5 83 12 143/75 (97) 95 I/O 03/17/17 03/17/17 03/17/17 03/18/17 03/18/17 03/18/17 07:00 15:00 23:00 07:00 15:00 23:00 Intake Total 480 ml 1796 ml 120 ml 120 ml 240 ml Output Total 400 ml Balance 480 ml 1796 ml -280 ml 120 ml 240 ml Intake Oral 480 ml 1796 ml 120 ml 120 ml 240 ml Output Urine Total 400 ml # Voids 4 2 4 3 3 # Bowel Movements 0 2 2 1 Result Diagram: 03/16/17 0550 03/16/17 0550 Objective Remarks GENERAL: This is a well-nourished, well-developed patient, in no apparent distress. CARDIOVASCULAR: Regular rate and rhythm without murmurs, gallops, or rubs. RESPIRATORY: Clear to auscultation. Breath sounds equal bilaterally. No wheezes , rales, or rhonchi. GASTROINTESTINAL: Abdomen soft, non-tender, nondistended. Normal active bowel sounds MUSCULOSKELETAL: Right shoulder sling, Extremities without clubbing, cyanosis, or edema. NEURO: Hard of hearing but Alert & Oriented x4 to person, place, time, situation. Moves all ext x4 A/P Problem List: (1) Brain mass ICD Code: G93.9 - Disorder of brain, unspecified Plan: Will likely need rehabilitation at discharge Neurosurgery consult pending Palliative care consult appreciated hematology/oncology consult appreciated CT chest abdomen and pelvis show no evidence of masses (2) Ataxia ICD Code: R27.0 - Ataxia, unspecified Plan: Likely secondary to brain mass and diplopia we'll continue with efforts of occupational and physical therapy (3) DM2 (diabetes mellitus, type 2) ICD Code: E11.9 - Type 2 diabetes mellitus without complications Plan: Continue sliding scale with hypoglycemic protocol and insulin with meals (4) HTN (hypertension) ICD Code: I10 - Essential (primary) hypertension Plan: Currently controlled on home regimen of losartan and metoprolol (5) Afib ICD Code: I48.91 - Unspecified atrial fibrillation Plan: Patient also with a history of congestive heart failure without any evidence of exacerbation at this time We'll continue with digoxin, Aldactone, metoprolol, aspirin and losartan Patient not on blood thinner due to frequent falls (6) Edema ICD Code: R60.9 - Edema, unspecified Plan: This is chronic, patient will resume torsemide Discharge Planning likely discharge to [facility] facility pending neurosurgery consult, Violet Aleman MD Mar 18, 2017 14:33
[2017-03-18 16:00] VITALS: BP 150/72; PULSE 95; RESP 20; TEMP 97; O2SAT 98
[2017-03-18] MEDS: TORSEMIDE 20 MG TAB PO SCH (16:49)
[2017-03-18 20:00] VITALS: BP 146/65; PULSE 81; RESP 18; TEMP 98.1; O2SAT 94
[2017-03-18] MEDS: PRAMIPEXOLE DIHYDROCHLORIDE 0.25 MG TAB PO SCH (21:35)
[2017-03-18] MEDS: traMADol HCL 50 MG TAB PO PRN (21:37)
[2017-03-19] VITALS: BP 130/68; PULSE 94; RESP 18; TEMP 98; O2SAT 93
[2017-03-19] MEDS: LEVOTHYROXINE SODIUM 88 MCG TAB PO SCH (06:04)
[2017-03-19] MEDS: INSULIN ASPART SUPPLEMENTAL SCALE SQ SCH ×4 (07:50→20:27)
[2017-03-19 08:00] VITALS: BP 143/80; PULSE 96; RESP 16; RESP 18; TEMP 97.4; O2SAT 97
--- NOTE | 2017-03-19 08:11 | HHI.PR ---
Subjective Remarks Patient seen in follow up for weakness, diplopia and Brain mass Awaiting NSGY consult Patient stable Objective Vitals Vital Signs Date Time Temp Pulse Resp B/P (MAP) Pulse Ox O2 Delivery O2 Flow Rate FiO2 03/19/17 00:00 98.0 94 18 130/68 (88) 93 03/18/17 20:00 98.1 81 18 146/65 (92) 94 03/18/17 16:00 97.0 95 20 150/72 (98) 98 03/18/17 12:00 96.7 67 18 122/54 (76) 97 I/O 03/18/17 03/18/17 03/18/17 03/19/17 03/19/17 03/19/17 07:00 15:00 23:00 07:00 15:00 23:00 Intake Total 120 ml 240 ml 240 ml 240 ml Balance 120 ml 240 ml 240 ml 240 ml Intake Oral 120 ml 240 ml 240 ml 240 ml # Voids 3 3 2 3 # Bowel Movements 1 Result Diagram: 03/16/17 0550 03/16/17 0550 Imaging Last Impressions Chest CT 03/17/17 0000 Signed Impressions: Service Date/Time: Friday, March 17, 2017 14:06 - CONCLUSION: No definite evidence of pulmonary mass or adenopathy. There are small posterior layering bilateral pleural effusions and 3 tiny subcentimeter nodules in the right mid and basilar lung field of indeterminate significance. As the atherosclerotic cardiovascular disease with prior median sternotomy and calcifications in the coronary arteries as well as mitral valve annulus. Xu Hanson MD Abdomen/Pelvis CT 03/17/17 0000 Signed Impressions: Service Date/Time: Friday, March 17, 2017 14:06 - CONCLUSION: Nothing specifically suspicious for metastatic disease. Small bilateral pleural effusions and parenchymal changes in the lung bases. Probably benign small lesions in the liver and Bosniak category IIF right renal lesion, these findings safe to follow Deven Williamson MD Head CT 03/15/17 [id number] Signed Impressions: Service Date/Time: Wednesday, March 15, 2017 18:08 - CONCLUSION: 1. 13 mm focus of increased density involving the right cerebral peduncle with characteristics more suggestive of a mass. I cannot completely exclude an intraparenchymal hemorrhage although this is an atypical location for this. MRI with and without gadolinium could be considered to further evaluate. 2. Atrophy. Lei Fontaine Jr., MD Shoulder X-Ray 03/15/17 0000 Signed Impressions: Service Date/Time: Wednesday, March 15, 2017 17:58 - CONCLUSION: Anterior dislocation. Lei Fontaine Jr., MD Humerus X-Ray 03/15/17 0000 Signed Impressions: Service Date/Time: Wednesday, March 15, 2017 17:58 - CONCLUSION: Anterior dislocation of the shoulder. Lei Fontaine Jr., MD Cervical Spine CT 03/15/17 0000 Signed Impressions: Service Date/Time: Wednesday, March 15, 2017 18:08 - CONCLUSION: 1. No fracture or dislocation. 2. Multilevel degenerative changes including areas of central canal stenosis and neural foraminal impingement as detailed at each level in the above discussion. Lei Fontaine Jr., MD Brain MRI 03/15/17 0000 Signed Impressions: Service Date/Time: Wednesday, March 15, 2017 21:26 - CONCLUSION: 1. 13 x 13 x 10 mm mass involving the right cerebral peduncle consistent with a primary malignancy. 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 2. Atrophy and chronic small vessel ischemic change. 3. No hemorrhage or acute infarction. Lei Fontaine Jr., MD Objective Remarks GENERAL: This is a well-nourished, well-developed patient, in no apparent distress. CARDIOVASCULAR: Regular rate and rhythm without murmurs, gallops, or rubs. RESPIRATORY: Clear to auscultation. Breath sounds equal bilaterally. No wheezes , rales, or rhonchi. GASTROINTESTINAL: Abdomen soft, non-tender, nondistended. Normal active bowel sounds MUSCULOSKELETAL: Right shoulder sling, Extremities without clubbing, cyanosis, or edema. NEURO: Hard of hearing but Alert & Oriented x4 to person, place, time, situation. Moves all ext x4 A/P Problem List: (1) Brain mass ICD Code: G93.9 - Disorder of brain, unspecified Plan: Will likely need rehabilitation at discharge Neurosurgery consult pending Palliative care consult appreciated hematology/oncology consult appreciated CT chest abdomen and pelvis show no evidence of masses (2) Ataxia ICD Code: R27.0 - Ataxia, unspecified Plan: Likely secondary to brain mass and diplopia we'll continue with efforts of occupational and physical therapy (3) DM2 (diabetes mellitus, type 2) ICD Code: E11.9 - Type 2 diabetes mellitus without complications Plan: Continue sliding scale with hypoglycemic protocol and insulin with meals Patient probably mostly nonadherent as she has not required long-acting insulin here and has required minimal sliding scale (4) HTN (hypertension) ICD Code: I10 - Essential (primary) hypertension Plan: Currently controlled on home regimen of losartan and metoprolol (5) Afib ICD Code: I48.91 - Unspecified atrial fibrillation Plan: Patient also with a history of congestive heart failure without any evidence of exacerbation at this time We'll continue with digoxin, Aldactone, metoprolol, aspirin and losartan Patient not on blood thinner due to frequent falls (6) Edema ICD Code: R60.9 - Edema, unspecified Plan: This is chronic,continue torsemide Discharge Planning likely discharge to [facility] facility pending neurosurgery consult, Violet Aleman MD Mar 19, 2017 08:11
--- NOTE | 2017-03-19 08:14 | HHI.DCPOC ---
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 Avoid second hand smoke Call the 24-hour hour crisis hotline for domestic abuse at Violet Aleman MD Mar 19, 2017 08:14
--- NOTE | 2017-03-19 08:16 | HHI.DS ---
Discharge Summary Admission Date Mar 15, 2017 at 21:23 Discharge Date: Mar 19, 2017 Admitting Diagnosis Dislocated shoulder ataxia, pontine mass (1) Brain mass ICD Code: G93.9 - Disorder of brain, unspecified (2) Ataxia ICD Code: R27.0 - Ataxia, unspecified (3) DM2 (diabetes mellitus, type 2) ICD Code: E11.9 - Type 2 diabetes mellitus without complications (4) HTN (hypertension) ICD Code: I10 - Essential (primary) hypertension (5) Afib ICD Code: I48.91 - Unspecified atrial fibrillation (6) Edema ICD Code: R60.9 - Edema, unspecified Brief History - From Admission This patient is a 86-year-old female with a history of multiple malignancies including melanoma, colon cancer, squamous cell carcinoma of the skin, breast cancer and non-Hodgkin's lymphoma. The patient presents with multiple falls in the past and most recently over the last week. She feels weak and has fallen at least 3 times. She hit her head and was brought to the emergency room by her family. They did do a CT in the emergency room and she is noted to have an brain mass which is new for the patient. There is a 13 mm right cerebral peduncle mass as seen on both CAT scans and MRI. Patient reports melanoma in the shoulder and in the back in the past. She says her sister also had a brain tumor which they thought was lymphoma. The patient has no history of immunocompromise. There has been no recent travel other than from [place] where most of her medical care has been in the past. She has a right shoulder in a sling due to dislocation which was recently evaluated by her orthopedic doctor Dr. Coffman. 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 She does get injections of steroids for that shoulder infrequently. At this time the patient is calm. She has no pain complaint. She is at the bedside in the chair. Enrique has been placed due to incontinence and probable early wounds on the scan. She does not move a lot because she is afraid she will fall. She has also been complaining of diplopia for which she saw the eye doctor. Patient's been admitted for further evaluation of the new brain mass. CBC/BMP: 03/16/17 0550 03/16/17 0550 Significant Findings Laboratory Tests Test 03/17/17 18:30 Urine Turbidity CLOUDY (CLEAR) Urine Occult Blood LARGE (NEG) Urine Leukocyte Esterase LARGE (NEG) Urine WBC 20-24 /hpf (0-5) Urine WBC Clumps MOD (NONE) Urine Bacteria MANY /hpf (NONE) PE at Discharge GENERAL: This is a well-nourished, well-developed patient, in no apparent distress. CARDIOVASCULAR: Regular rate and rhythm without murmurs, gallops, or rubs. RESPIRATORY: Clear to auscultation. Breath sounds equal bilaterally. No wheezes , rales, or rhonchi. GASTROINTESTINAL: Abdomen soft, non-tender, nondistended. Normal active bowel sounds MUSCULOSKELETAL: Right shoulder sling, Extremities without clubbing, cyanosis, or edema. NEURO: Hard of hearing but Alert & Oriented x4 to person, place, time, situation. Moves all ext x4 Pt update on day of discharge Patient seen in room, resting, no new complaints. Discharge plans discussed with patient and medical team Still awaiting neurosurgery consult Hospital Course This patient is a 6-year-old female with diabetes and hypertension. She had recent onset of diplopia was found to have a MRI finding of a brain mass. 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 Patient seen by both palliative care as well as the oncology team. Recommend regulations for evaluation for metastatic disease were Undertaken given the patient's history of multiple malignancies. There is no evidence of metastatic disease. Patient had her blood sugars managed appropriately with minimal insulin. She was on higher bit of insulin at home and this probably represents nonadherence in the home environment. Her atrial fibrillation was stable and patient was discharged to long-term facility Pt Condition on Discharge: Fair Discharge Disposition: Discharge to SNF Discharge Time: > 30 minutes Discharge Instructions DIET: Follow Instructions for: Diabetic Diet Activities you can perform: Regular-No Restrictions Continued Medications: Aspirin DR (Aspirin DR) 81 Mg Tabdr 81 MG PO DAILY, TAB 0 Refills Digoxin (Digoxin) 0.125 Mg Tab 0.125 MG PO DAILY for Regulate Heart Beat, #30 TAB 0 Refills Diltiazem ER 24 HR (Cartia Xt) 120 Mg Caper 120 MG PO DAILY, #30 CAP 0 Refills Levothyroxine (Levothyroxine) 88 Mcg Tab 88 MCG PO DAILY for Thyroid, #30 TAB 0 Refills Losartan (Losartan) 25 Mg Tab 12.5 MG PO DAILY for Blood Pressure Management, #15 TAB 0 Refills Metformin (Metformin) 1,000 Mg Tab 1000 MG PO BIDPC for Blood Sugar Management, #60 TAB 0 Refills With meals Metolazone (Metolazone) 2.5 Mg Tab 2.5 MG PO 2 times a week, #30 TAB 0 Refills Metoprolol Tartrate (Metoprolol Tartrate) 100 Mg Tab 100 MG PO DAILY, #30 TAB 0 Refills Polyethylene Glycol-Propylene Glycol Opth Drp (Systane Opth Drops) 0.4-0.3% Soln 1 DROP EACH EYE PRN PRN for DRY EYE, #1 BOTTLE 0 Refills Potassium Chloride Microencaps (Klor-Con M20) 20 Meq Tab 20 MEQ PO DAILY for Electrolyte Replacement, #30 TAB 0 Refills Pramipexole (Pramipexole) 0.25 Mg Tab 0.75 MG PO HS for Parkinson Disease Mgmt, #90 TAB 0 Refills Spironolactone (Spironolactone) 25 Mg Tab 25 MG PO DAILY, #30 TAB 0 Refills Torsemide (Torsemide) 20 Mg Tab 20 MG PO DAILY, #30 TAB 0 Refills Tramadol (Tramadol) 50 Mg Tab 50 MG PO Q6H PRN for PAIN, TAB 0 Refills Discontinued Medications: Insulin Detemir Inj (Levemir Inj) 1,000 unit/ 10 ML Vial 40 UNITS SQ BID for Blood Sugar Management, VIAL 0 Refills Do not mix with any other Insulin. Insulin Lispro (Human) Inj (Humalog Inj) 1,000 Unit/10 Ml Vial 15 UNITS SQ TIDAC for Blood Sugar Management, #1 VIAL 0 Refills Violet Aleman MD Mar 19, 2017 08:16
[2017-03-19] MEDS: INSULIN ASPART 1,000 UNITS/10 ML VIAL SQ SCH ×3 (08:48→17:44)
[2017-03-19] MEDS: TORSEMIDE 20 MG TAB PO SCH (09:37)
[2017-03-19] MEDS: SPIRONOLACTONE 25 MG TAB PO SCH (09:37)
[2017-03-19] MEDS: SODIUM CHLORIDE 0.9% FLUSH 10 ML FLUSH IV FLUSH SCH ×2 (09:37→20:27)
[2017-03-19] MEDS: DILTIAZEM-CD 120 MG CAP ER PO SCH (09:37)
[2017-03-19] MEDS: ASPIRIN EC 81 MG TABEC PO SCH (09:39)
[2017-03-19] MEDS: METOPROLOL TARTRATE 100 MG TAB PO SCH (09:39)
[2017-03-19] MEDS: LOSARTAN 25 MG TAB PO SCH (09:39)
[2017-03-19] MEDS: POTASSIUM CHLORIDE 20 MEQ CONTROLLED RELEASE TAB PO SCH (09:41)
[2017-03-19] MEDS: DIGOXIN 0.125 MG TAB PO SCH (09:41)
[2017-03-19 12:00] VITALS: BP 127/64; PULSE 75; TEMP 97.5; O2SAT 93
[2017-03-19 16:00] VITALS: BP_SYST 148; BP_SYST 80; BP_DIAS 80; PULSE 78; RESP 18; TEMP 98; O2SAT 97
--- NOTE | 2017-03-19 18:01 | PD.CONS ---
HPI Service Neurosurgery Consult Requested By Medicine service Reason for Consult Brain lesion Primary Care Physician Jose Enrique Kumar M.D. History of Present Illness Ms. Meeks is a pleasant 86-year-old female who presented to the emergency room on 03/15/2017 due to multiple falls. She states that she has fallen at least 6 times in the past few weeks. She recently sustained a shoulder dislocation after falling, managed palpation by orthopedics surgery. She states that she has been using a lift chair to stand up for quite some time. Sometimes when she tries to stand up out of the chair she will "slumped down" onto the floor. She states that she does not have any definite dizziness or vertigo, but is simply unsteady on her feet. She does not complain of any significant weakness or numbness or pain in the extremities except for her shoulder. No headaches. She does complain of double vision and is being evaluated by optometry or ophthalmology. She denies any recent significant changes in her mental status. She has had no fevers or chills. She does give a history of a brain tumor in a family member. Review of Systems Constitutional: DENIES: Fever, Weight loss Eyes: COMPLAINS OF: Diplopia, DENIES: Blurred vision, Vision loss Ears, nose, mouth, throat: COMPLAINS OF: Hearing loss, DENIES: Vertigo, Ear Pain Respiratory: DENIES: Shortness of breath Cardiovascular: DENIES: Chest pain, Palpitations, Syncope Gastrointestinal: DENIES: Abdominal pain, Nausea Genitourinary: COMPLAINS OF: Urgency Musculoskeletal: COMPLAINS OF: Joint pain, Back pain, Neck pain Hematologic/lymphatic: DENIES: Bruising Neurologic: COMPLAINS OF: Abnormal gait, DENIES: Headache, Localized weakness Psychiatric: DENIES: Anxiety, Confusion Past Family Social History Allergies: Coded Allergies: piperacillin (Verified Allergy, Severe, RASH, 03/15/17) tazobactam (Verified Allergy, Severe, RASH, 03/15/17) Sulfa (Sulfonamide Antibiotics) (Verified Allergy, Intermediate, Anaphylaxis, 03/15/17) sulindac (Verified Allergy, Intermediate, Anaphylaxis, 03/15/17) clarithromycin (Verified Allergy, Mild, Rash, 03/15/17) Past Medical History Positive for several different malignancies including breast cancer, squamous cell skin cancer, melanoma, colon cancer, non-Hodgkin's lymphoma. Hypertension Hypothyroidism Diabetes Mitral regurgitation Atrial fibrillation Past Surgical History Aortic valve replacement Left mastectomy Lumbar spine surgery Colon resection for cancer Partial thyroidectomy Reported Medications Reported Meds & Active Scripts Active Reported Systane Opth Drops (Polyethylene Glycol-Propylene Glycol Opth Drp) 0.4-0.3% Soln 1 Drop EACH EYE PRN PRN Torsemide 20 Mg Tab 20 Mg PO DAILY Aspirin DR (Aspirin) 81 Mg Tabdr 81 Mg PO DAILY Pramipexole (Pramipexole Dihydrochloride) 0.25 Mg Tab 0.75 Mg PO HS Metoprolol Tartrate 100 Mg Tab 100 Mg PO DAILY Tramadol (Tramadol HCl) 50 Mg Tab 50 Mg PO Q6H PRN Spironolactone 25 Mg Tab 25 Mg PO DAILY Cartia Xt (Diltiazem ER 24 HR) 120 Mg Caper 120 Mg PO DAILY Metformin (Metformin HCl) 1,000 Mg Tab 1,000 Mg PO BIDPC With meals Losartan (Losartan Potassium) 25 Mg Tab 12.5 Mg PO DAILY Metolazone 2.5 Mg Tab 2.5 Mg PO 2 TIMES A WEEK Digoxin 0.125 Mg Tab 0.125 Mg PO DAILY Levothyroxine (Levothyroxine Sodium) 88 Mcg Tab 88 Mcg PO DAILY Klor-Con M20 (Potassium Chloride Microencaps) 20 Meq Tab 20 Meq PO DAILY Humalog Inj (Insulin Human Lispro) 1,000 Unit/10 Ml Vial 15 Units SQ TIDAC Levemir Inj (Insulin Detemir) 1,000 unit/ 10 ML Vial 40 Units SQ BID Do not mix with any other Insulin. Family History Positive for brain tumor in her sister, non-Hodgkin's lymphoma in her mother. Lung cancer in her father Social History Previously smoked cigarettes for approximately 40 years. Does not drink alcohol She has been living with her daughter but anticipates that she will need to go into penitentiary Physical Exam Vital Signs Vital Signs Date Time Temp Pulse Resp B/P (MAP) Pulse Ox O2 Delivery O2 Flow Rate FiO2 03/19/17 16:00 98.0 78 18 80/ 97 03/19/17 12:00 97.5 75 127/64 (85) 93 03/19/17 08:00 97.4 96 18 143/80 (101) 97 03/19/17 00:00 98.0 94 18 130/68 (88) 93 03/18/17 20:00 98.1 81 18 146/65 (92) 94 Physical Exam Gen.: Pleasant elderly lady, in no apparent distress Respirations: Clear, nonlabored Cardiac: Regular. No carotid bruit Gastrointestinal: Soft, nontender Extremities: Moderate lower extremity edema without evidence cyanosis Neurologic: Awake and alert Mild dysarthria which appears related to lack of upper dentures. Answers questions appropriately. Follows simple commands well Extraocular movements appear intact. She does report diplopia when she is watching TV. Counts fingers accurately to confrontation all quadrants. Facial sensory or motor tongue palate sternocleidomastoid testing intact Moderately diminished hearing to finger rub bilateral Sensation intact to light touch upper extremities. Mild diminished sensation light touch distally or extremities over areas of edema. Motor function 5/5 throughout the upper and lower extremities except for possible slight weakness right tibialis anterior Kate's response absent bilateral No ankle clonus Laboratory Date/Time Source Procedure Growth Status 03/17/17 18:30 Urine Catheterized Urine Urine Culture - Final Group B Beta Strep Complete Result Diagram: 03/16/17 0550 03/16/17 0550 Imaging 03/15/17 MRI brain images reviewed by the undersigned. The study reveals an approximately 13 mm lesion at the medial right cerebral peduncle adjacent to the third ventricle. No significant surrounding edema. Impressions: Service Date/Time: Friday, March 17, 2017 14:06 - CONCLUSION: No definite evidence of pulmonary mass or adenopathy. There are small posterior layering bilateral pleural effusions and 3 tiny subcentimeter nodules in the right mid and basilar lung field of indeterminate significance. As the atherosclerotic cardiovascular disease with prior median sternotomy and calcifications in the coronary arteries as well as mitral valve annulus. Xu Hanson MD Abdomen/Pelvis CT 03/17/17 0000 Signed Impressions: Service Date/Time: Friday, March 17, 2017 14:06 - CONCLUSION: Nothing specifically suspicious for metastatic disease. Small bilateral pleural effusions and parenchymal changes in the lung bases. Probably benign small lesions in the liver and Bosniak category IIF right renal lesion, these findings safe to follow Deven Williamson MD Head CT 03/15/17 1743 Signed Impressions: Service Date/Time: Wednesday, March 15, 2017 18:08 - CONCLUSION: 1. 13 mm focus of increased density involving the right cerebral peduncle with characteristics more suggestive of a mass. I cannot completely exclude an intraparenchymal hemorrhage although this is an atypical location for this. MRI with and without gadolinium could be considered to further evaluate. 2. Atrophy. Lei Fontaine Jr., MD Shoulder X-Ray 03/15/17 0000 Signed Impressions: Service Date/Time: Wednesday, March 15, 2017 17:58 - CONCLUSION: Anterior dislocation. Lei Fontaine Jr., MD Humerus X-Ray 03/15/17 0000 Signed Impressions: Service Date/Time: Wednesday, March 15, 2017 17:58 - CONCLUSION: Anterior dislocation of the shoulder. Lei Fontaine Jr., MD Cervical Spine CT 03/15/17 0000 Signed Impressions: Service Date/Time: Wednesday, March 15, 2017 18:08 - CONCLUSION: 1. No fracture or dislocation. 2. Multilevel degenerative changes including areas of central canal stenosis and neural foraminal impingement as detailed at each level in the above discussion. Lei Fontaine Jr., MD Brain MRI 03/15/17 0000 Signed Impressions: Service Date/Time: Wednesday, March 15, 2017 21:26 - CONCLUSION: 1. 13 x 13 x 10 mm mass involving the right cerebral peduncle consistent with a primary malignancy. 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 2. Atrophy and chronic small vessel ischemic change. 3. No hemorrhage or acute infarction. 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 Approximately 13 mm mass right cerebral peduncle. Most suggestive of low- grade astrocytoma. 2. History of multiple malignancies noted above 3. Hypertension 4. Diabetes Recommendations: Findings were discussed at length with the patient. The MRI images were reviewed with her. Options of conservative treatment with serial MRI and CT imaging, biopsy and/or endoscopic resection of the lesion, and potential stereotactic radiation treatment. Biopsies all been discussed. She requests that it contact her daughter to discuss treatment options and prognosis. Call me to her daughter and answered this evening. We will continue to try to contact family. She is stable from a neurosurgical standpoint. She may be discharged to SNF for home with home healthcare from neurosurgery standpoint and followed up as an outpatient. Bruce Reyez MD Mar 19, 2017 18:01
[2017-03-19 20:00] VITALS: BP 128/67; PULSE 81; RESP 16; TEMP 97.8; O2SAT 93
[2017-03-19] MEDS: PRAMIPEXOLE DIHYDROCHLORIDE 0.25 MG TAB PO SCH (20:28)
== END 2017-03-19 20:41 | DRG 55 ==
LOC: PHED 16:38 → PHEDA 21:23 → PH3A 22:49
PROVIDERS: ADMIT Hospitalist; ATTEND Hospitalist
PROC: 0T9B70Z Drainage of Bladder with Drainage Device, Via Natural or Artificial Opening (ICD-10-PCS; principal; 2017-03-15)
DX: C71.7 Malignant neoplasm of brain stem (principal); I48.91 Unspecified atrial fibrillation; I50.9 Heart failure, unspecified; I11.0 Hypertensive heart disease with heart failure; J44.9 Chronic obstructive pulmonary disease, unspecified; E11.9 Type 2 diabetes mellitus without complications; D64.9 Anemia, unspecified; R63.4 Abnormal weight loss; R27.0 Ataxia, unspecified; R29.6 Repeated falls; R32 Unspecified urinary incontinence; I34.0 Nonrheumatic mitral (valve) insufficiency; E89.0 Postprocedural hypothyroidism; I89.0 Lymphedema, not elsewhere classified; H53.2 Diplopia; I25.10 Atherosclerotic heart disease of native coronary artery without angina pectoris; M24.411 Recurrent dislocation, right shoulder; M48.02 Spinal stenosis, cervical region; M19.90 Unspecified osteoarthritis, unspecified site; H91.90 Unspecified hearing loss, unspecified ear; W19.XXXA Unspecified fall, initial encounter; Z66 Do not resuscitate; Z79.4 Long term (current) use of insulin; Z80.1 Family history of malignant neoplasm of trachea, bronchus and lung; Z80.7 Family history of other malignant neoplasms of lymphoid, hematopoietic and related tissues; Z85.038 Personal history of other malignant neoplasm of large intestine; Z85.3 Personal history of malignant neoplasm of breast; Z85.72 Personal history of non-Hodgkin lymphomas; Z85.820 Personal history of malignant melanoma of skin; Z88.0 Allergy status to penicillin; Z87.891 Personal history of nicotine dependence; Z88.1 Allergy status to other antibiotic agents; Z88.2 Allergy status to sulfonamides; Z90.12 Acquired absence of left breast and nipple; Z92.21 Personal history of antineoplastic chemotherapy; Z95.1 Presence of aortocoronary bypass graft; Z95.2 Presence of prosthetic heart valve
CPT/HCPCS: 70450; 70553; 71260; 72125; 73030; 73060; 74177; 80048; 80053; 80162; 81001; 82948; 84484; 85025; 85610; 85730; 86403; 87086; 93005; A9579; J1815; P9612; Q9963; Q9967